=== PATIENT | male | born 1955 | race Caucasian/White ===

== ENCOUNTER 2019-08-03 17:53 | Inpatient (IN) | payer BC ==
[~2019-08-03] VITALS: Ht 182.9 cm; Wt 107.3 kg
[~2019-08-03 17:53] MED LIST: ATENPOW
[2019-08-03] MEDS ORDERED: METO1TAB87 PO (18:00)
[2019-08-03] MEDS ORDERED: NS 1,000 ML IV SCH (18:10)
[2019-08-03 18:14] LABS: HEMATOCRIT 25.3 % (42.0-52.0); HEMOGLOBIN 8.4 g/dl (13.5-17.5); MEAN CORPUSCULAR HEMOGLOBIN 30.2 pg (27.0-33.0); MEAN CORPUSCULAR HGB CONC 33.2 g/dl (32.0-36.5); PLATELET COUNT, AUTOMATED 233 10^3/uL (150-450); RED BLOOD COUNT 2.78 10^6/uL (4.30-6.10)
[2019-08-03 18:15] LABS: WHITE BLOOD COUNT 14.9 10^3/uL (4.0-10.0)
[2019-08-03] MEDS ORDERED: ASPIRIN 81 MG CHEW TABLET PO ONE (18:15)
[2019-08-03] MEDS ORDERED: NITROGLYCERIN 0.4 MG SUBL TABLET SL PRN (18:15)
[2019-08-03 18:26] LABS: INR 1.01
[2019-08-03 18:27] LABS: PARTIAL THROMBOPLASTIN TIME 22.6 SECONDS (25.0-38.4)
[2019-08-03] MEDS: METOPROLOL 5 MG/5 ML VIAL IV SCH ×3 (18:30→18:42)
[2019-08-03 18:31] LABS: ATYPICAL LYMPH 6 % (0-5); BASOPHILS 1 % (0-1); LYMPHOCYTES 39 % (16-44); MONOCYTES 4 % (0-5); NEUTROPHILS 50 % (28-66)
[2019-08-03 18:33] LABS: PLATELET ESTIMATE NORMAL (NORMAL)
[2019-08-03 18:34] LABS: D-DIMER QUANT < 270 ng/ml (<500)
[2019-08-03 18:51] LABS: BLOOD UREA NITROGEN 49 MG/DL (7-18); CARBON DIOXIDE LEVEL 26 MEQ/L (21-32); CHLORIDE LEVEL 103 MEQ/L (98-107); CPK CREATINE PHOSPHOKINASE 28 U/L (39-308); CREATININE FOR GFR 0.97 MG/DL (0.70-1.30); FREE T4 0.77 NG/DL (0.76-1.46); GLOMERULAR FILTRATION RATE > 60.0 (>49); GLUCOSE, FASTING 105 MG/DL (70-100); MB/CK RELATIVE INDEX 3.57 (< OR =4); NT-PRO BNP 41 PG/ML (<125); POTASSIUM SERUM 3.5 MEQ/L (3.5-5.1); SODIUM LEVEL 136 MEQ/L (136-145); TROPONIN I < 0.02 NG/ML (< 0.10)
[2019-08-03] MEDS ORDERED: PRED20TA PO (19:29)
[2019-08-03] MEDS ORDERED: NITROGLYCERIN 0.3 MG SUBL TAB SL PRN (19:30)
[2019-08-03] MEDS ORDERED: PANTOPRAZOLE 40MG VIAL (C9113 PER 1) IV ONE (19:30)
[2019-08-03] MEDS ORDERED: ACETAMINOPHEN TAB 650MG DOSE (2X325MG) PO PRN (19:30)
[2019-08-03] MEDS ORDERED: LORazepam 2 MG TAB PO PRN (19:30)
[2019-08-03] MEDS ORDERED: ISOVUE-370 76% 100ML VIAL As Ordered ONE (19:34)
[2019-08-03] MEDS: NS 1,000 ML IV SCH ×2 (19:55→22:24)
--- NOTE | 2019-08-03 19:57 | REPVR ---
PROCEDURE INFORMATION: Exam: CT Abdomen And Pelvis With Contrast Exam date and time: 08/03/2019 7:36 PM Age: 64 years old Clinical indication: Other: Gi bleed TECHNIQUE: Imaging protocol: Computed tomography of the abdomen and pelvis with intravenous contrast. Radiation optimization: All CT scans at this facility use at least one of these dose optimization techniques: automated exposure control; mA and/or kV adjustment per patient size (includes targeted exams where dose is matched to clinical indication); or iterative reconstruction. Contrast material: ISOVUE 370; Contrast volume: 100 ml; Contrast route: IV; COMPARISON: No relevant prior studies available. FINDINGS: Liver: Normal. No mass. Gallbladder and bile ducts: Normal. No calcified stones. No ductal dilation. Pancreas: Normal. No ductal dilation. Spleen: Normal. No splenomegaly. Adrenals: 11 mm left adrenal gland nodule, indeterminate. Kidneys and ureters: Indeterminate left renal hypodensity measuring 10 mm. Stomach and bowel: Unremarkable. No obstruction. No mucosal thickening. Appendix: No evidence of appendicitis. Intraperitoneal space: Unremarkable. No free air. No significant fluid collection. Vasculature: Mild vascular calcification. Lymph nodes: Unremarkable. No enlarged lymph nodes. Bladder: Unremarkable as visualized. Reproductive: Unremarkable as visualized. Bones/joints: There are degenerative changes involving the spine. Soft tissues: Right inguinal hernia contains fat. IMPRESSION: 1. No acute abnormality involving the abdomen or pelvis. 2. 11 mm left adrenal gland nodule, indeterminate. Adrenal protocol MRI may be considered. 3. 10 mm hypodensity involving the inferior left kidney, indeterminate. Ultrasound may be considered. Electronically signed by: Klever Krause On 08/03/2019 19:57:05 PM
[2019-08-03 20:10] VITALS: BP 117/63
[2019-08-03 20:20] LABS: CHOLESTEROL LEVEL 204 MG/DL (<200); CHOLESTEROL RISK RATIO 2.241 (<5); HDL CHOLESTEROL 91 MG/DL (>40); LDL CHOLESTEROL 78 MG/DL (<100); NON-HDL-C 113 MG/DL; TRIGLYCERIDES LEVEL 177 MG/DL (<150)
[2019-08-03 20:25] VITALS: BP 120/66
[2019-08-03 20:28] LABS: VENOUS BASE EXCESS -1.2 (-2.0-2.0); VENOUS HCO3 22.3 MEQ/L (23.0-27.0); VENOUS O2 SATURATION 99.2 % (60.0-80.0); VENOUS PARTIAL PRESSURE CO2 31.6 mmHg (38.0-50.0); VENOUS PARTIAL PRESSURE O2 181.4 mmHg (30.0-50.0); VENOUS PH 7.466 UNITS (7.330-7.430); VENOUS STANDARD HCO3 23.5 MEQ/L; VENOUS TOTAL CO2 23.2 MEQ/L (24.0-28.0)
[2019-08-03 20:52] LABS: HEMOGLOBIN A1c 5.3 %
[2019-08-03 21:17] VITALS: BP 130/80
[2019-08-03] MEDS: THIAMINE 100 MG TAB PO SCH (22:23)
[2019-08-03] MEDS: PANTOPRAZOLE 40MG VIAL (C9113 PER 1) IV SCH (22:24)
--- NOTE | 2019-08-03 22:43 | HPEPDOC ---
[facility] Medical History & Physical Date of Admission Aug 03, 2019 Date of Service: Aug 03, 2019 Primary Care Physician: Jackie Darling Attending Physician: MAHAD FERNANDEZ MD History and Physical TIME OF SERVICE: 8:55 PM CHIEF COMPLAINT: Chest pressure HISTORY OF PRESENT ILLNESS: This is a 64-year-old male who presented with complaints of 6 /10 in severity, mid-left chest pressure and tightness that resolved after he received meds in the ER. He has had chest pain in the past and had an Echo &stress test done by ; he report being told that he has anxiety and HTN. Today he also had transient palpitations, headache, felt that his legs were weak and felt dizzy and short of breath while walking; he did not fall or loose conciousnes. He came to the ER because he thought he may be having a heart attack. Of note he was diagnosed with gout about 5 days ago via a telemedicine visit and started on steroids; he stopped taking the steroids yesterday because of abdominal pain which has since resolved. He denies vomiting or having diarrhea, but had dark stools yesterday. 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 REVIEW OF SYSTEMS: 12 point review of systems negative except as listed in HPI PAST MEDICAL/ SURGICAL HISTORY: Chronic HTN L knee surgery SOCIAL HISTORY: + tobacco + alcohol 2-3 beers daily (denies hx of DTs) - recreational drugs FAMILY HISTORY: HTN- father OR/CAD - mother and father ALLERGIES: Please see below. HOME MEDICATIONS: Please see below. PHYSICAL EXAMINATION: Vital Signs Date Time Temp Pulse Resp B/P (MAP) Pulse Ox O2 Delivery O2 Flow Rate FiO2 08/03/19 17:58 99.1 117 20 136/86 (103) 98 Room Air 08/03/19 18:35 2.0 GEN: Obese/ well developed INTEGUMENT: not flushed/ not jaundice / redness, warmth and swelling surrouding right index MCP joint HEENT: normocephalic / atraumatic / lips acyanotic /mucus membranes moist and pink CVS: RRR/NMRG LUNGS: able to speak full sentences without stopping to take a breath /lungs are clear to auscultation bilaterally on room air ABDOMEN: Contour ( obese) NEURO: CN 2-12 are grossly intact / speech is not dysarthric PSYCH: alert and oriented to person place and time/ able to understand and foll ow all commands LABORATORY DATA: Prothrombin Time 13.0, Prothromb Time International Ratio 1.01, Activated Partial Thromboplast Time 22.6L, D-Dimer, Quantitative < 270, Anion Gap 7L, Glomerular Filtration Rate > 60.0, Estimated Mean Plasma Glucose 105, Hemoglobin A1c 5.3, Calcium Level 8.0L, Total Creatine Kinase 28L, Creatine Kinase MB 1.0, Creatine Kinase MB Relative Index 3.57, Troponin I < 0.02, Thyroid Stimulating Hormone (TSH) 1.530, Free Thyroxine 0.77 IMAGING: Chest xray- appears unremarkable but final report is pending CT abd/pelvis- "IMPRESSION: 1. No acute abnormality involving the abdomen or pelvis. 2. 11 mm left adrenal gland nodule, indeterminate. Adrenal protocol MRI may be considered. 3. 10 mm hypodensity involving the inferior left kidney, indeterminate. Ultrasound may be considered. " EKG: tachycardia w rate of [address] changes MICROBIOLOGY: 08/03/19 Respiratory Virus Panel (PCR) (BLAS), Received Pending 08/03/19 Blood Culture, Received Pending ASSESSMENT: Mr. Leary is a 64-year-old with a history of chronic hypertension who is admitted for evaluation of symptomatic blood loss anemia. PLAN: 1. Symptomatic Acute Blood loss Anemia I suspect his abdominal pain may be due to gastritis. The chest pain, dizziness, weakness and shortness of breath may be due the acute anemia. Possibly due to gastritis as the patient was started on steroids about 4 days ago and drinks daily. He has never had a colonoscopy On arrival, he was tachycardic, but his MAP has been consistently above 70. Hemoglobin has dropped 8.4 from his baseline of around 14.4 [place]ien[place] score to predict risk of readmission for GI bleed = 25 points = discharge not recommended The first unit of PRBCs was started in the ER Plan: admit to PCU / check orthostatics/fall precautions/CLD w IVF pending GI consult /PPI/ f/u to go aside count, iron panel, B12, PRBC, folate, stool occult, and serial serial Hg 2. SIRS Likely reactive due to acute blood los; he doesn't appear toxic or septic SIRS criteria include HR >90 / WBC >12 Has nondiabetic hyperglycemia Plan: telemetry /follow-up lactic acid, VBG, blood cultures, and respiratory panel 3. Chest Pain / Abdominal pain Possibly due to gastritis vs acute anemia vs anxiety vs other cause to be determined The EKG and troponin were not consistent with acute OR The chest x-ray appeared unremarkable CT of the abdomen was unremarkable Plan: no ASA because of acute anemia/telemetry / f/u 2 more troponins, A1c, li pid panel / Acetaminophen & Nitro PRN for chest pain / obtain echo and stress test reports from 's office 4. Right second MCP joint He has a history of gout affecting the hallux Acute Gout Diagnostic Rule = 6.5 points = equivocal = rec synovial fluid analysis for crystals Plan: f/u Uric Acid / d/c steroids / the day time team can consult Ortho for joint aspiration to confirm diagnosis 5. Alcohol abuse - Plan: Ativan, multivitamin, thiamine, folic acid, per [facility] protocol 6. Chronic HTN - Plan: resume Metoprolol tomorrow AM 7. Tobacco abuse - Plan: smoking cessation education/nicotine patch when necessary 8. Obesity with BMI of 32, complicates care. - Plan: f/u A1C/ the pt can f/u w his PCP for STOP BANG questionnaire & camera assembler consult / recommend cardiovascular exercise for 40 min 4-5 days a week DVT PROPHYLAXIS: SCDs bc of acute anemia DISPOSITION: home after more than 2 midnight's stay Home Medications Scheduled Metoprolol Tartrate (Metoprolol Tartrate) 25 Mg Tablet, 25 MG PO BID Prednisone (Prednisone) 20 Mg Tablet, 20 MG PO TID FOR 5 DAYS, START 07/31/2019 Allergies Coded Allergies: No Known Allergies (Unverified , 08/03/19) A-FIB/CHADSVASC A-FIB History Current/History of A-Fib/PAF?: No Current PO Anticoag Therapy: No MAHAD FERNANDEZ MD Aug 03, 2019 22:42
[2019-08-03 23:10] VITALS: BP 131/78
[2019-08-04] VITALS (11 sets, daily range): BP systolic 107–138; BP diastolic 54–78
[2019-08-04] MEDS: NICOTINE 21MG/24HR 1 EA TRANSDERMAL TD SCH ×2 (00:15→21:00)
[2019-08-04 00:16] LABS: HEMATOCRIT 23.8 % (42.0-52.0); HEMATOCRIT 24.2 % (42.0-52.0)
[2019-08-04 00:55] LABS: FERRITIN 203 NG/ML (26-388); IRON (FE) 263 UG/DL (65-175); PERCENT SATURATION 89.2 % (19.7-50.0); TOTAL IRON BINDING CAPACITY 295 UG/DL (250-450); TROPONIN I < 0.02 NG/ML (< 0.10); URIC ACID 8.3 MG/DL (3.5-7.2)
[2019-08-04] MEDS ORDERED: cefTRIAXone SOD 1 GM in D5W MINI-BAG PLUS 50 ML IV SCH (01:00)
[2019-08-04] MEDS ORDERED: OCTREOTIDE ACETATE 1,200 MCG in NS 238.8 ML IV SCH (01:00)
[2019-08-04] MEDS ORDERED: OCTREOTIDE ACETATE 100MCG/ML VIAL (J2354 PER 25MCG) IV ONE (01:00)
[2019-08-04 05:31] LABS: HEMATOCRIT 26.9 % (42.0-52.0); HEMOGLOBIN 9.2 g/dl (13.5-17.5); MEAN CORPUSCULAR HEMOGLOBIN 30.7 pg (27.0-33.0); MEAN CORPUSCULAR HGB CONC 34.2 g/dl (32.0-36.5); MEAN CORPUSCULAR VOLUME 89.7 fl (80.0-96.0); PLATELET COUNT, AUTOMATED 184 10^3/uL (150-450); WHITE BLOOD COUNT 9.3 10^3/uL (4.0-10.0)
[2019-08-04 05:55] LABS: BLOOD UREA NITROGEN 43 MG/DL (7-18); CALCIUM LEVEL 7.6 MG/DL (8.8-10.2); CARBON DIOXIDE LEVEL 23 MEQ/L (21-32); CHLORIDE LEVEL 109 MEQ/L (98-107); CREATININE FOR GFR 0.82 MG/DL (0.70-1.30); GLOMERULAR FILTRATION RATE > 60.0 (>49); GLUCOSE, FASTING 95 MG/DL (70-100); SODIUM LEVEL 138 MEQ/L (136-145); TROPONIN I < 0.02 NG/ML (< 0.10)
--- NOTE | 2019-08-04 07:37 | REP ---
CHEST, SINGLE VIEW: There is no evidence of acute infiltrate. No pleural effusion is seen. The heart is normal in size. The mediastinal silhouette is unremarkable. The visualized osseous structures are intact. IMPRESSION: No acute pulmonary disease. Electronically Signed by Jacoby Erickson MD 08/04/2019 10:20 A
[2019-08-04] MEDS: MULTIVITAMINS/MINERALS THERAP 1 TAB PO SCH (08:44)
[2019-08-04] MEDS: PANTOPRAZOLE 40MG VIAL (C9113 PER 1) IV SCH ×2 (08:44→21:12)
[2019-08-04] MEDS: THIAMINE 100 MG TAB PO SCH ×2 (08:44→21:12)
[2019-08-04] MEDS: FOLIC ACID 1 MG TAB PO SCH (08:44)
[2019-08-04] MEDS: METOPROLOL TART 25 MG TABLET PO SCH ×2 (08:45→21:12)
--- NOTE | 2019-08-04 08:57 | ECGEPIP ---
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 Electronically Signed on 08-04-2019 8:57:25 EDT by Juan Carlos Cruz
[2019-08-04] MEDS: NS 1,000 ML IV SCH (09:34)
--- NOTE | 2019-08-04 09:56 | IPNPDOC ---
Subjective Date Seen The patient was seen on 08/04/19. Subjective Chief Complaint/HPI Patient is comfortable in no distress. Just complaining of some epigastric pain General: Denies: ROS Unobtainable, Chills, Night Sweats, Fatigue, Malaise, Normal Appetite, Other Symptoms Constitutional: Denies: Chills, Fever, Malaise, Night Sweats, Weakness, Fatigue, Weight Loss, Lethargy, Other Pulmonary: Denies: Dyspnea, Cough, Pleuritic Chest Pain, Other Symptoms Cardiovascular: Denies: Chest Pain, Palpitations, Orthopnea, Paroxysmal Noc. Dyspnea, Edema, Lt Headedness, Other Symptoms Gastrointestinal: Reports: Abdominal Pain, Melena Hematologic: Denies: Bruising, Bleeding Excessively, Petecchia, Purpura, Enlarged Lymph Nodes, Other Hematologic Endocrine: Denies: Polydipsia, Polyphagia, Polyuria, Heat Intolerance, Cold Intolerance, Other Endocrine Sx Musculoskeletal: Denies: Neck Pain, Back Pain, Shoulder Pain, Arm Pain, Hand Pain, Leg Pain, Foot Pain, Joint Pain, Muscle Pain, Spasms, Other Symptoms Neurological: Denies: Weakness, Numbness, Incoordination, Change in speech, Confusion, Seizures, Other Symptoms Psych: Denies: Mood Normal, Anxiety, Depression, Memory Issues, Thoughts of Self Harm, Anger, Thoughts of Harming Other, Other Psych Objective Physical Examination General Exam: Positive: Alert, Cooperative Eye Exam: Positive: PERRLA, Conjunctiva & lids normal ENT Exam: Positive: Atraumatic, Mucous membr. moist/pink Neck Exam: Positive: Supple Chest Exam: Positive: Clear to auscultation, Normal air movement Heart Exam: Positive: Rate Normal, Normal S1, Normal S2 Abdomen Exam: Positive: Other (positive tenderness at the epigastric area on palpation) Extremity Exam: Positive: Normal pulses Skin Exam: Positive: Nl turgor and temperature Neuro Exam: Positive: Strength at 5/5 X4 ext, Cranial Nerves 3-12 NL Psych Exam: Positive: Mood NL, Oriented x 3 Assessment /Plan Problems (1) Upper GI hemorrhage Status: Acute Problem Text: Patient most likely has upper GI bleed, possible secondary to acute gastritis versus peptic ulcer disease. Patient has been taking prednisone as well as NSAIDs for his gout flareup lately Patient did receive 2 units of PRBC today his hemoglobin is 9.[address] Dr. Gutierrez were called by Dr. Stone for consultation but the recommend to call surgical consult was covering for GI today. Dr. Zeng was called and discussed and he will see the patient today Will continue IV Protonix but will DC Sandostatin as there is no evidence of a variceal bleed. Patient does not have symptoms of nausea, vomiting, hematemesis Continue clear liquid diet Monitor H&H Further recommendations as per GI (2) Acute blood loss anemia Status: Acute Problem Text: Acute blood loss anemia secondary to upper GI bleed. H&H stable after transfusion Monitor H&H and transfuse as needed (3) Gout Status: Chronic Problem Text: History of gout and patient recently has been taking large amounts of prednisone and NSAIDs for his gout flareup Will hold prednisone as well as NSAIDs at the present time. Could be the triggering factor for upper GI bleed (4) Alcohol use disorder Status: Chronic Problem Text: Patient is started on CIWA protocol Abstinence from alcohol was discussed in detail. Since patient also has a history of gout, which can be extubated by alcohol. We'll clinically monitor patient Plan/VTE VTE Prophylaxis Ordered?: Yes VS, I&O, 24H, Fishbone Vital Signs/I&O Vital Signs Date Time Temp Pulse Resp B/P (MAP) Pulse Ox O2 Delivery O2 Flow Rate FiO2 08/04/19 08:45 105 137/78 08/04/19 08:00 97.4 20 99 Room Air 08/03/19 19:00 2.0 I&O- Last 24 Hours up to 6 AM 08/04/19 06:00 Intake Total 800 ml Output Total 400 ml Balance 400 ml Laboratory Data 24H LABS Laboratory Tests 2 08/03/19 18:04: Neutrophils (%) (Auto) , Lymphocytes # (Auto) , Nucleated Red Blood Cells % (auto) 0.0, Neutrophils 50, Lymphocytes (Manual) 39, Monocytes (Manual) 4, Basophils (Manual) 1, Atypical Lymphocytes 6H, Platelet Estimate NORMAL, Prothrombin Time 13.0, Prothromb Time International Ratio 1.01, Activated Partial Thromboplast Time 22.6L, D-Dimer, Quantitative < 270, Anion Gap 7L, Gl omerular Filtration Rate > 60.0, Estimated Mean Plasma Glucose 105, Hemoglobin A1c 5.3, Calcium Level 8.0L, Total Creatine Kinase 28L, Creatine Kinase MB 1.0, Creatine Kinase MB Relative Index 3.57, Troponin I < 0.02, EZ-Nnd-X-Type Natriuretic Peptide 41, Triglycerides Level 177H, Total Cholesterol 204H, LDL Cholesterol 78, Non-HDL Cholesterol (LDL + VLDL) 113, Total HDL Cholesterol 91, Cholesterol/HDL Ratio 2.241, Thyroid Stimulating Hormone (TSH) 1.530, Free Thyroxine 0.77 08/03/19 20:23: Blood Gas Bicarbonate Standard 23.5, Venous Blood pH 7.466H, Venous Blood Partial Pressure CO2 31.6L, Venous Blood Partial Pressure O2 181.4H, Venous Blood Total Carbon Dioxide 23.2L, Venous Blood HCO3 22.3L, Venous Blood Oxygen Saturation 99.2H, Venous Blood Base Excess -1.2 08/03/19 23:54: Troponin I < 0.02, Reticulocyte # (auto) 52.8, Percent Reticulocyte Count 2.0H, Reticulocyte Hemoglobin Equivalent 34.8, Uric Acid 8.3H, Iron Level 263H, Total Iron Binding Capacity 295, Transferrin % Saturation 89.2H, Ferritin 203 08/04/19 04:51: Nucleated Red Blood Cells % (auto) 0.2H, Anion Gap 6L, Glomerular Filtration Rate > 60.0, Calcium Level 7.6L, Troponin I < 0.02 CBC/BMP Laboratory Tests 08/03/19 18:04 08/03/19 23:54 08/04/19 04:51 Microbiology Microbiology 08/03/19 Respiratory Virus Panel (PCR) (BLAS) - Final, Complete 08/03/19 Blood Culture, Received Pending THELMA JONES MD Aug 04, 2019 09:56
[2019-08-04 10:00] LABS: VITAMIN B12 LEVEL 97 PG/ML (247-911)
[2019-08-04] MEDS ORDERED: MORPHINE 2 MG/ML 1ML VIAL (J2270) IV PRN (13:15)
[2019-08-04] MEDS ORDERED: PROT1TAB2 PO (13:47)
--- NOTE | 2019-08-04 14:16 | DS.PDOC ---
Discharge Summary General Date of Admission Aug 03, 2019 at 19:30 Date of Discharge 08/04/19 Discharge Summary PROCEDURES PERFORMED DURING STAY: AMA ADMITTING DIAGNOSES: 1. Upper GI bleed. DISCHARGE DIAGNOSES: 1. Upper GI bleed, alcohol abuse, hypertension, anxiety . COMPLICATIONS/CHIEF COMPLAINT: Chest Pain. HISTORY OF PRESENT ILLNESS: This is a 64-year-old male who presented with complaints of 6 /10 in severity, mid-left chest pressure and tightness that resolved after he received meds in the ER. He has had chest pain in the past and had an Echo &stress test done by ; he report being told that he has anxiety and HTN. Today he also had transient palpitations, headache, felt that his legs were weak and felt dizzy and short of breath while walking; he did not fall or loose conciousnes. He came to the ER because he thought he may be having a heart attack. Of note he was diagnosed with gout about 5 days ago via a telemedicine visit and started on steroids; he stopped taking the steroids yesterday because of abdominal pain which has since resolved. He denies vomiting or having diarrhea, but had dark stools yesterday. 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 HOSPITAL COURSE: Patient was admitted with the most likely upper GI bleed with a history of epigastric pain and dark stools, most likely secondary to intake of steroids, NSAIDs and alcohol. Patient was started on octreotide Rocephin and IV PPI. Octreotide and Rocephin were DC'd, but IV PPI has been continued Patient is on clear liquid diet. Dr. Zeng for him. Surgery was called for possible EGD. Patient also received 2 units of PRBC with improvement in his hemoglobin and hematocrit. Jodee decided to sign out AMA leave, as per patient, nothing is being done, all risks of signing or AMA were explained to him and details. He understands very well, but still sign out AMA. DISCHARGE MEDICATIONS: Please see below. ALLERGIES: Please see below. PHYSICAL EXAMINATION ON DISCHARGE: For physical exam, please review the progress note of 08/04/2019 LABORATORY DATA: Please see below. IMAGING: Not applicable PROGNOSIS: Sign out AMA ACTIVITY: As tolerated. DIET: , Regular DISCHARGE PLAN: Sign out AMA DISPOSITION: . Sign out AMA DISCHARGE INSTRUCTIONS: 1. Patient was advised to avoid NSAIDs and his steroids and total abstinence from alcohol. ITEMS TO FOLLOWUP ON ON OUTPATIENT: 1. Follow PCP as soon as possible. DISCHARGE CONDITION: Stable. TIME SPENT ON DISCHARGE: 20 minutes. Vital Signs/I&Os Vital Signs Date Time Temp Pulse Resp B/P (MAP) Pulse Ox O2 Delivery O2 Flow Rate FiO2 08/04/19 08:45 105 137/78 08/04/19 08:00 97.4 20 99 Room Air 08/03/19 19:00 2.0 I&O- Last 24 Hours up to 6 AM 08/04/19 06:00 Intake Total 800 ml Output Total 400 ml Balance 400 ml Laboratory Data Labs 24H Laboratory Tests 2 08/03/19 18:04: Neutrophils (%) (Auto) , Lymphocytes # (Auto) , Nucleated Red Blood Cells % (auto) 0.0, Neutrophils 50, Lymphocytes (Manual) 39, Monocytes (Manual) 4, Basophils (Manual) 1, Atypical Lymphocytes 6H, Platelet Estimate NORMAL, Prothrombin Time 13.0, Prothromb Time International Ratio 1.01, Activated Partial Thromboplast Time 22.6L, D-Dimer, Quantitative < 270, Anion Gap 7L, Glomerular Filtration Rate > 60.0, Estimated Mean Plasma Glucose 105, Hemoglobin A1c 5.3, Calcium Level 8.0L, Total Creatine Kinase 28L, Creatine Kinase MB 1.0, Creatine Kinase MB Relative Index 3.57, Troponin I < 0.02, LQ-Ojc-U-Type Natriuretic Peptide 41, Triglycerides Level 177H, Total Cholesterol 204H, LDL Cholesterol 78, Non-HDL Cholesterol (LDL + VLDL) 113, Total HDL Cholesterol 91, Cholesterol/HDL Ratio 2.241, Thyroid Stimulating Hormone (TSH) 1.530, Free Thyroxine 0.77 08/03/19 20:23: Blood Gas Bicarbonate Standard 23.5, Venous Blood pH 7.466H, Venous Blood Partial Pressure CO2 31.6L, Venous Blood Partial Pressure O2 181.4H, Venous Blood Total Carbon Dioxide 23.2L, Venous Blood HCO3 22.3L, Venous Blood Oxygen Saturation 99.2H, Venous Blood Base Excess -1.2 08/03/19 23:54: Troponin I < 0.02, Reticulocyte # (auto) 52.8, Percent Reticulocyte Count 2.0H, Reticulocyte Hemoglobin Equivalent 34.8, Uric Acid 8.3H, Iron Level 263H, Total Iron Binding Capacity 295, Transferrin % Saturation 89.2H, Ferritin 203, Vitamin B12 Level 97L 08/04/19 04:51: Nucleated Red Blood Cells % (auto) 0.2H, Anion Gap 6L, Glomerular Filtration Rate > 60.0, Calcium Level 7.6L, Troponin I < 0.02 CBC/BMP Laboratory Tests 08/03/19 18:04 08/03/19 23:54 08/04/19 04:51 08/04/19 12:05 Microbiology Microbiology 08/04/19 Stool Occult Blood (BLAS) - Final, Complete 08/03/19 Respiratory Virus Panel (PCR) (BLAS) - Final, Complete 08/03/19 Blood Culture, Received Pending Discharge Medications Scheduled Metoprolol Tartrate (Metoprolol Tartrate) 25 Mg Tablet, 25 MG PO BID, (Reported) Pantoprazole Sodium (Protonix) 40 Mg Tablet.dr, 40 MG PO DAILY Allergies Coded Allergies: No Known Allergies (Unverified , 08/03/19) THELMA JONES MD Aug 04, 2019 14:16
--- NOTE | 2019-08-04 18:37 | ECGEPIP ---
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
--- NOTE | 2019-08-04 20:11 | CR ---
DATE OF CONSULTATION: 08/04/2019 REASON FOR CONSULTATION: Presumed upper gastrointestinal (GI) bleed. HISTORY OF PRESENT ILLNESS: The patient is a pleasant 64-year-old man who presented to the hospital on the evening of August 03, 2019 complaining of chest discomfort. He reported that he had had discomfort for about 2 hours with a suggestion of some radiation down the left arm and some shortness of breath. His vital signs showed him to be quite tachycardiac with his first pulse rate recorded at 122, rising shortly into the 140s and even to 152. His blood pressure was acceptable, though the systolic dipped below 100 briefly. He was evaluated and found to have a hematocrit of 25. His blood chemistries were significant for a BUN of 49 with a creatinine of 0.97. His cardiac injury profiles were negative. His triglycerides and cholesterol were both elevated. He was monitored with serial hematocrits, and this fell slightly to 23.8 at almost midnight on the August 02. He did receive a transfusion of packed red blood cells with a total of 2 units given from late on August 02 into the electrical manager of August 03. He was noted to have dark bowel movements, and he reported that this had started on August 02. His stool was found to be guaiac positive. He has no past history of peptic ulcer disease or known GI bleed. He has never undergone a prior upper endoscopy or colonoscopy. I was contacted by Dr. Rivera to consider upper endoscopy. The patient reports that he has been taking quite a bit of ibuprofen recently. He reports a history of gout, which in May had been in his foot, and at that time, he was taking ibuprofen. More recently, he has had pain in his right 2nd metacarpophalangeal joint. Again, he reported taking quite a bit of ibuprofen and then had gone to an online physician consult and was prescribed prednisone, which he had been taking for 3-4 days before he discontinued this yesterday. ALLERGIES: The patient reports no known drug allergies. CURRENT MEDICATIONS: Include metoprolol 25 mg by mouth twice a day. That was his only medication before admission. He currently has orders for Tylenol as needed for pain, Protonix 40 mg twice daily, thiamine 100 mg twice daily, folate 1 mg daily, a multivitamin daily, Nicoderm CQ 21 patch daily and morphine as needed. MEDICAL HISTORY: Significant for some chronic hypertension. He has seen Dr. Miner of cardiology in the past for some chest discomfort and apparently has been following infrequently with no significant cardiac disease identified. He has a history of arthritis in his left knee. History of gout. SURGICAL HISTORY: Significant only for a left knee arthroscopy. SOCIAL HISTORY: The patient is employed at the [employer]. He is a smoker and also drinks alcohol; several beers daily according to the hospitalist note. FAMILY HISTORY: Significant for hypertension in his father and his parents both had coronary artery disease. REVIEW OF SYSTEMS: Shows no identified serious coronary disease. He denies any cough, wheezing or sputum production. He has had no history of deep vein thrombosis (DVT) or pulmonary embolus. There is no history of stroke, transient ischemic attack (TIA), or seizure. He denies any new bone or joint issues. He has had no history of prior peptic ulcer disease, hepatitis, pancreatitis or yellow jaundice. He denies any dysuria or hematuria or history of renal stones. PHYSICAL EXAM: Reveals a pleasant man sitting quietly in a chair at the bedside. He is alert and oriented. Skin is warm and dry. Sclerae are anicteric. Neck is supple without mass. Heart exam: Shows a regular rhythm that appears to be at about 100. The lungs are clear to auscultation bilaterally. The abdomen is mildly to moderately obese and is soft with active bowel sounds present. Extremities: Show palpable radial pulses bilaterally. Laboratory studies today include a white count of 9, hemoglobin of 9, hematocrit of 27 and a platelet count of 184,000. This followed a transfusion of 2 units of packed red blood cells after admission. His chemistries today showed sodium 138, potassium 4.0, chloride 109, CO2 of 23, BUN of 43, creatinine 0.8 and a glucose of 95. His iron is high at 263 with a TIBC of 295 and a transferrin percent sat of 89 with a ferritin of 203. On admission, he had a chest x-ray which showed no acute cardiopulmonary disease. He had a CT scan of the abdomen and pelvis for reasons unclear, but apparently because of chest pain, and this showed no acute abnormalities. There was a small 11 mm left adrenal nodule that was indeterminate as well as a 10 mm hypodensity of the inferior left kidney, which was also felt to be indeterminate. IMPRESSION: 1. Acute GI bleed with significant anemia and some cardiac symptoms, likely from gastritis versus peptic ulcer disease. 2. Gout right 2nd metacarpophalangeal joint. 3. Hypertension. 4. Tobacco use. 5. Mild obesity. RECOMMENDATIONS: Certainly the patient is at a high risk for gastritis and/or peptic ulcer disease given some baseline alcohol intake, heavy use of ibuprofen, and a short course of steroids for 4 days. He has had black stool, and his hematocrit dropped to about 25. I do not have any labs more recent than 2016 when his hematocrit here at [facility] was 42. Certainly his shortness of breath and chest pressure symptoms would be consistent with a fairly acute blood loss. He reports that the melena did not start until this Sunday, only 1 day before admission. I discussed with him the possibility of performing an upper endoscopy. I think it would be reasonable to obtain the information from an endoscopy to potentially help guide treatment decisions. It is quite possible that the findings will not alter the plan for care, which I am sure will include a course of proton pump inhibitors. If, however, a large ulcer were identified, then we would know that his risk of rebleeding is likely higher than it would be if only some mild generalized gastritis is identified. He is eager to leave the hospital, but I counseled him that it is still not entirely clear if he has stopped bleeding as his bowel movements are still black and his hematocrit did not rise significantly with his transfusion. He indicates he is willing to stay at least overnight, and I will try to get him into the schedule for an endoscopy tomorrow. Because of the COVID-19 pandemic, the options for endoscopy are more limited, and must be done in the operating room, which means he will likely go at the end of the day tomorrow. CRISTAL
[2019-08-05] VITALS (9 sets, daily range): BP systolic 124–170; BP diastolic 60–83
[2019-08-05] MEDS: NS 1,000 ML IV SCH ×2 (06:43→17:19)
--- NOTE | 2019-08-05 08:24 | ECGEPIP ---
[facility] - ED Test Date: 2019-08-03 Pat Name: JILLIAN JOAQUIN Department: Room: [place] [address] Gender: Male External Grinder Tender: KATHRYN : 1955 Requested By: JANETT REED Order Number: [id number] Reading MD: Akash Belle Measurements Intervals [place] Rate: 111 P: 57 IN: 134 QRS: 47 QRSD: 86 T: 71 QT: 305 QTc: 416 Interpretive Statements SINUS TACHYCARDIA NONSPECIFIC ST & T-WAVE ABNORMALITY NO PRIORS FOR COMPARISON Electronically Signed on 08-05-2019 8:23:57 EDT by Akash Belle
[2019-08-05] MEDS: MULTIVITAMINS/MINERALS THERAP 1 TAB PO SCH (08:49)
[2019-08-05] MEDS: FOLIC ACID 1 MG TAB PO SCH (08:49)
[2019-08-05] MEDS: METOPROLOL TART 25 MG TABLET PO SCH ×2 (08:51→20:53)
[2019-08-05] MEDS: PANTOPRAZOLE 40MG VIAL (C9113 PER 1) IV SCH ×2 (08:54→20:52)
[2019-08-05] MEDS: THIAMINE 100 MG TAB PO SCH ×2 (09:00→20:52)
[2019-08-05 10:35] LABS: HEMATOCRIT 22.1 % (42.0-52.0); HEMOGLOBIN 7.4 g/dl (13.5-17.5); MEAN CORPUSCULAR HEMOGLOBIN 30.3 pg (27.0-33.0); MEAN CORPUSCULAR HGB CONC 33.5 g/dl (32.0-36.5); MEAN CORPUSCULAR VOLUME 90.6 fl (80.0-96.0); PLATELET COUNT, AUTOMATED 184 10^3/uL (150-450); RED BLOOD COUNT 2.44 10^6/uL (4.30-6.10); WHITE BLOOD COUNT 6.5 10^3/uL (4.0-10.0)
[2019-08-05] MEDS ORDERED: HYDROmorphone 2 MG TAB PO ONE (10:45)
[2019-08-05] MEDS ORDERED: MORPHINE 4 MG/ML 1ML VIAL/SYRINGE (J2270) IV ONE (10:45)
[2019-08-05 11:17] LABS: BLOOD UREA NITROGEN 14 MG/DL (7-18); CALCIUM LEVEL 7.7 MG/DL (8.8-10.2); CARBON DIOXIDE LEVEL 27 MEQ/L (21-32); CHLORIDE LEVEL 110 MEQ/L (98-107); CREATININE FOR GFR 0.76 MG/DL (0.70-1.30); GLOMERULAR FILTRATION RATE > 60.0 (>49); GLUCOSE, FASTING 112 MG/DL (70-100); POTASSIUM SERUM 3.3 MEQ/L (3.5-5.1); SODIUM LEVEL 140 MEQ/L (136-145)
[2019-08-05] MEDS ORDERED: LIDOCAINE 2% 100MG/5ML SDV (FOR ANES.) As Ordered ONE (18:39)
[2019-08-05] MEDS ORDERED: propofoL 200 MG/20 ML VIAL As Ordered ONE ×2 (18:39→19:31)
[2019-08-05] MEDS ORDERED: fentaNYL 100 MCG/2 ML INJECTION (J3010) As Ordered ONE (18:39)
[2019-08-05] MEDS ORDERED: PHENYLephrine HCL 500 MCG/5 ML (100MCG/ML) SYRINGE (J2370) As Ordered ONE (19:32)
--- NOTE | 2019-08-05 19:47 | IPNPDOC ---
Date Seen The patient was seen on 08/05/19. Progress Note SUBJECTIVE: Pain in right hand, swelling with uric acid >8 likely flare of gouty arthritis. To go to EGD later today. Patient would like to go home. H/H lower this AM. Denies acute bleeding, n/v/d, loose stool. OBJECTIVE: VITAL SIGNS: Please see below PHYSICAL EXAMINATION: CONSTITUTIONAL: No acute distress, AAO x 3 EYES: PERRLA, EOM intact HENT, MOUTH: Normocephalic, atraumatic, moist mucous membranes NECK: SUPPLE, no JVD, no lymphadenopathy, no carotid bruit CV: Regular rate and rhythm, S1S2 normal, no murmurs/rubs/gallops RESPIRATORY: Clear to auscultation bilaterally, no rales/rhonchi/wheezes GI: BS positive in 4 quadrants, soft, nontender, nondistended, no rebound or guarding, no organomegaly : Deferred MUSCULOSKELETAL: right hand tender to touch, swollen but no erythema, warmth of hand. Normal ROM. No cyanosis, clubbing INTEGUMENTARY: Intact, no rashes, no lesions, no erythema NEUROLOGIC: Cranial Nerves II-XII are intact, no focal deficits PSYCHIATRIC: Agitated mood CURRENT MEDICATIONS: Please see below LABORATORY DATA: Please see below IMAGING: EGD scheduled for this evening ASSESSMENT: PLAN: 1. Upper GI hemorrhage, acute. No acute bleeding since admission. H/H lower today, s/p 2 units PRBC since admission. Likely upper GI bleed, possible secondary to acute gastritis versus peptic ulcer disease.. Patient has been taking prednisone as well as NSAIDs for his gout flareup lately. EGD this evening, f/u results. Will continue IV Protonix. NPO for procedure but tolerated clear liquid diet, resume after EGD. Monitor H&H, next at 21:00. Further recommendations as per GI 2. Acute blood loss anemia secondary to upper GI bleed. H/H continued to drop, goal H/H >7. F/u CBC this evening. 3. Acute Gout flare. History of gout and patient recently has been taking large amounts of prednisone and NSAIDs for his gout flareup, alcohol abuse. Hold prednisone as well as NSAIDs at the present time. Could be the triggering factor for upper GI bleed. Morphine for pain control. 4. Alcohol use disorder, chronic. No signs of withdrawl. Since patient also has a history of gout, which can be extubated by alcohol. monitor with CIWA. 5. GI px. PPI BID. 6. DVT px. AC contraindicated. DISPOSITION: Plan is for EGD tonight, f/u recommendations. Patient will likely need to stay to f/u H/H which has been steadily declining. VS, I&O, 24H, Fishbone Vital Signs/I&O Vital Signs Date Time Temp Pulse Resp B/P (MAP) Pulse Ox O2 Delivery O2 Flow Rate FiO2 08/05/19 15:22 98.2 98 18 129/69 (89) 97 Room Air 08/03/19 19:00 2.0 I&O- Last 24 Hours up to 6 AM 08/05/19 05:59 Intake Total 2135 ml Output Total 550 ml Balance 1585 ml Laboratory Data 24H LABS Laboratory Tests 2 08/05/19 10:17: Nucleated Red Blood Cells % (auto) 0.0, Anion Gap 3L, Glomerular Filtration Rate > 60.0, Calcium Level 7.7L CBC/BMP Laboratory Tests 08/05/19 10:17 Microbiology Microbiology 08/04/19 Stool Occult Blood (BLAS) - Final, Complete 08/03/19 Respiratory Virus Panel (PCR) (BLAS) - Final, Complete 08/03/19 Blood Culture - Preliminary, Resulted No growth after 24 hours . All specim... Current Medications Current Medications Medications (Trade) Dose Ordered Sig/Filiberto Route PRN Reason Start Time Stop Time Status Last Admin Dose Admin Acetaminophen (Tylenol Tab) 650 mg Q4H PRN PO PAIN OR FEVER 08/03/19 19:30 08/04/19 09:34 Ceftriaxone Sodium 1 gm/ Dextrose 50 ml @ 100 mls/hr Q24H IV 08/04/19 01:00 08/04/19 09:59 DC 08/04/19 01:58 Folic Acid (Folic Acid) 1 mg DAILY PO 08/04/19 09:00 08/05/19 08:49 Home Med (Med Rec Complete!) ASDIRECTED XX 08/03/19 19:30 08/03/19 19:34 DC Lorazepam (Ativan) 2 mg ASDIRECTED PRN PO SEE PROTOCOL 08/03/19 19:30 Metoprolol Tartrate (Lopressor) 5 mg Q5M IV 08/03/19 18:30 08/03/19 18:41 DC 08/03/19 18:42 Metoprolol Tartrate (Lopressor) 25 mg BID PO 08/04/19 09:00 08/05/19 08:51 Morphine Sulfate (Morphine Sulfate Inj) 2 mg Q6H PRN IV MODERATE PAIN (PS 5-7) 08/04/19 13:15 08/04/19 22:49 Multivitamins (Theragram-M) 1 tab DAILY PO 08/04/19 09:00 08/05/19 08:49 Nicotine (Nicoderm Cq 21mg) 1 patch QHS TD 08/04/19 00:15 Nitroglycerin (Nitrostat (1/ 150)) 0.4 mg Q5M PRN SL CHEST PAIN 08/03/19 18:15 08/03/19 23:48 DC 08/03/19 18:18 Nitroglycerin (Nitrostat (1/ 200)) 0.3 mg Q5MP PRN SL CHEST PAIN 08/03/19 19:30 Octreotide Acetate 1200 mcg/ Sodium Chloride 240 ml @ 10 mls/hr Q24H IV 08/04/19 01:00 08/04/19 09:55 DC 08/04/19 03:19 Pantoprazole Sodium (Protonix) 40 mg BID IV 08/03/19 21:00 08/05/19 08:54 Sodium Chloride 1,000 ml @ 100 mls/hr Q10H IV 08/03/19 18:10 08/03/19 19:51 DC 08/03/19 18:17 Sodium Chloride 1,000 ml @ 100 mls/hr Q10H IV 08/03/19 19:30 08/05/19 17:19 Thiamine HCl (Thiamine HCl) 100 mg BID PO 08/03/19 21:00 08/06/19 20:59 08/05/19 09:00 Allergies Coded Allergies: No Known Allergies (Unverified , 08/03/19) Nannette Lopes MD Aug 05, 2019 19:47
[2019-08-05] MEDS ORDERED: LR 1,000 ML IV SCH (20:00)
[2019-08-05] MEDS: NICOTINE 21MG/24HR 1 EA TRANSDERMAL TD SCH (21:00)
--- NOTE | 2019-08-05 23:00 | IPN ---
DATE: 08/05/2019 HISTORY: The patient was seen in consultation last evening for a history of probable upper gastrointestinal (GI) bleeding. He had presented with some tachycardia and chest discomfort and was found to be quite anemic. He was admitted by the hospitalist and received 2 units of packed red blood cells. I was consulted for possible endoscopy. Vital signs: Show that the patient has been afebrile over the past 24 hours. His pulse is in the 90s regularly, and his blood pressure is acceptable. His room air oxygen saturation is normal. Intake and output show that yesterday he had 2500 of IV intake with 1 liter of that being oral. His urine output was 850, and he reported one bowel movement that was dark. PHYSICAL EXAMINATION: The patient is alert. He appears slightly pale. Heart exam shows that he does remain borderline tachycardiac at about 90-100. The lungs are clear. The abdomen is soft, nontender. Laboratory studies this morning show a white count of 6, hemoglobin 7.4, hematocrit 22, and a platelet count of 184,000. His hematocrit is down from 27 on the morning of the August 04, 2019. His chemistry profile shows sodium of 140, potassium 3.3, chloride 110, CO2 of 27, BUN of 14, creatinine 0.76, and a glucose of 112. IMPRESSION: The patient has clearly had a significant bleed and the melena is most suggestive of an upper GI source. He does have a history of significant recent use of ibuprofen as well as steroids, first for bronchitis and then for gout. His hematocrit is a little lower today than it had been yesterday. PLAN: I will proceed with an upper endoscopy later today to evaluate the source of bleeding. This likely represents either diffuse gastritis or ulcer disease associated with his recent medications. He was counseled for the procedure and desires to go ahead as planned. CRISTAL
--- NOTE | 2019-08-06 10:19 | ROOR ---
Patient Name: Eric Leary Procedure Date: 08/05/2019 6:37 PM Date of : 1955 Age: 64 Gender: Male Note Status: Finalized Procedure: Upper GI endoscopy Indications: Diagnostic procedure, Acute post hemorrhagic anemia, Recent gastrointestinal bleeding Providers: Alexi Zeng MD Referring MD: Juanjose Mcgregor Md Requesting Provider: Medicines: Monitored Anesthesia Care Complications: No immediate complications. Procedure: Pre-Anesthesia Assessment: - Prior to the procedure, a History and Physical was performed, and patient medications and allergies were reviewed. The patient is competent. The risks and benefits of the procedure and the sedation options and risks were discussed with the patient. All questions were answered and informed consent was obtained. Patient identification and proposed procedure were verified by the physician, the nurse and the harvesting manager in the procedure room. Mental Status Examination: alert and oriented. Airway Examination: normal oropharyngeal airway and neck mobility. Prophylactic Antibiotics: The patient does not require prophylactic antibiotics. Prior Anticoagulants: The patient has taken no previous anticoagulant or antiplatelet agents. ASA Grade Assessment: III - A patient with severe systemic disease. After reviewing the risks and benefits, the patient was deemed in satisfactory condition to undergo the procedure. The anesthesia plan was to use monitored anesthesia care (MAC). Immediately prior to administration of medications, the patient was re-assessed for adequacy to receive sedatives. The heart rate, respiratory rate, oxygen saturations, blood pressure, adequacy of pulmonary ventilation, and response to care were monitored throughout the procedure. The physical status of the patient was re-assessed after the procedure. The Endoscope was introduced through the mouth, and advanced to the second part of duodenum. The upper GI endoscopy was accomplished without difficulty. The patient tolerated the procedure well. Findings: The upper third of the esophagus, middle third of the esophagus and lower third of the esophagus were normal. One benign-appearing, intrinsic moderate stenosis was found at the gastroesophageal junction. Two non-bleeding cratered gastric ulcers with a visible vessel were found in the prepyloric region of the stomach. The largest lesion was 10 mm in largest dimension. To prevent bleeding post-intervention, two hemostatic clips were successfully placed (MR conditional). There was no bleeding at the end of the procedure. For hemostasis, two hemostatic clips were successfully placed (MR conditional). There was no bleeding at the end of the procedure. The second portion of the duodenum was normal. Patchy moderately erythematous mucosa without active bleeding and with no stigmata of bleeding was found in the first portion of the duodenum. Impression: - Normal upper third of esophagus, middle third of esophagus and lower third of esophagus. - Benign-appearing esophageal stenosis. - Non-bleeding gastric ulcers with a visible vessel. Clips (MR conditional) were placed. - Normal second portion of the duodenum. - Erythematous duodenopathy. - No specimens collected. Recommendation: - [facility]. Alexi Zeng MD Alexi Zeng MD 08/06/2019 10:19:29 AM Electronically signed by Alexi Zeng MD Number of Addenda: 0 Note Initiated On: 08/05/2019 6:37 PM Estimated Blood Loss: Estimated blood loss: none. Estimated blood loss: none.
== END 2019-08-05 21:32 | disposition left against medical advice (07) | DRG 241 ==
LOC: M ED 17:53 → M ED INP 19:30 → ENRESERVDT 20:03 → ENRESERVTM 20:03 → ENRESERVDT 20:04 → ENRESERVTM 20:04 → M PCU 21:17
PROVIDERS: ADMIT Internal Medicine; ATTEND Internal Medicine
PROC: 30233N1 Transfusion of Nonautologous Red Blood Cells into Peripheral Vein, Percutaneous Approach (ICD-10-PCS; 2019-08-03)
PROC: 0W3P8ZZ Control Bleeding in Gastrointestinal Tract, Via Natural or Artificial Opening Endoscopic (ICD-10-PCS; principal; 2019-08-05 18:00)
DX: K25.0 Acute gastric ulcer with hemorrhage (principal); D68.32 Hemorrhagic disorder due to extrinsic circulating anticoagulants; K22.2 Esophageal obstruction; I10 Essential (primary) hypertension; F17.200 Nicotine dependence, unspecified, uncomplicated; F41.9 Anxiety disorder, unspecified; K25.9 Gastric ulcer, unspecified as acute or chronic, without hemorrhage or perforation; M10.071 Idiopathic gout, right ankle and foot; T39.395A Adverse effect of other nonsteroidal anti-inflammatory drugs [NSAID], initial encounter; R07.9 Chest pain, unspecified; R73.9 Hyperglycemia, unspecified; F10.20 Alcohol dependence, uncomplicated; E66.9 Obesity, unspecified; Z68.32 Body mass index [BMI] 32.0-32.9, adult; Z79.899 Other long term (current) drug therapy; D62 Acute posthemorrhagic anemia

== ENCOUNTER → 2019-08-15 | Outpatient (CLI) | payer BC ==
[~2019-08-15] MED LIST changes: +METO1TAB87 PO; +PRED20TA PO; +PROT1TAB2 PO
[2019-08-15 15:02] LABS: HEMATOCRIT 27.6 % (42.0-52.0); HEMOGLOBIN 8.7 g/dl (13.5-17.5); MEAN CORPUSCULAR HEMOGLOBIN 29.5 pg (27.0-33.0); MEAN CORPUSCULAR HGB CONC 31.5 g/dl (32.0-36.5); MEAN CORPUSCULAR VOLUME 93.6 fl (80.0-96.0); PLATELET COUNT, AUTOMATED 578 10^3/uL (150-450); RED BLOOD COUNT 2.95 10^6/uL (4.30-6.10); WHITE BLOOD COUNT 7.3 10^3/uL (4.0-10.0)
== END ==
LOC: M LAB 13:44
PROVIDERS: ATTEND Surgery
DX: K25.3 Acute gastric ulcer without hemorrhage or perforation (principal)

== ENCOUNTER → 2019-08-22 | Outpatient (CLI) | payer BC ==
[2019-08-22 11:07] LABS: FOLATE 8.2 NG/ML
== END ==
LOC: M LAB 06:59
PROVIDERS: ATTEND Student in an Organized Health Care Education/Training Program
DX: D50.0 Iron deficiency anemia secondary to blood loss (chronic) (principal)

== ENCOUNTER → 2019-08-26 | Outpatient (CLI) | payer BC ==
[2019-08-26 08:12] LABS: BASO # 0.1 10^3/uL (0.0-0.2); BASO % 1.1 % (0.0-1.0); EOS # 0.5 10^3/uL (0.0-0.5); EOS % 8.6 % (0.0-3.0); HEMATOCRIT 34.8 % (42.0-52.0); HEMOGLOBIN 10.9 g/dl (13.5-17.5); LYMPH # 2.1 10^3/uL (1.5-5.0); LYMPH % 38.7 % (24.0-44.0); MEAN CORPUSCULAR HEMOGLOBIN 28.6 pg (27.0-33.0); MEAN CORPUSCULAR HGB CONC 31.3 g/dl (32.0-36.5); MEAN CORPUSCULAR VOLUME 91.3 fl (80.0-96.0); MONO # 0.4 10^3/uL (0.0-0.8); MONO % 7.4 % (0.0-5.0); NEUTROPHILS # 2.4 10^3/uL (1.5-8.5); PLATELET COUNT, AUTOMATED 442 10^3/uL (150-450); RED BLOOD COUNT 3.81 10^6/uL (4.30-6.10); WHITE BLOOD COUNT 5.4 10^3/uL (4.0-10.0)
[2019-08-26 09:13] LABS: FOLATE 8.2 NG/ML
[2019-08-26 09:48] LABS: HEMOGLOBIN A1c 4.4 %
== END ==
LOC: M LAB 07:37
PROVIDERS: ATTEND Student in an Organized Health Care Education/Training Program
DX: D50.0 Iron deficiency anemia secondary to blood loss (chronic) (principal); Z13.1 Encounter for screening for diabetes mellitus

== ENCOUNTER → 2019-09-01 | Outpatient (CLI) | payer BC ==
--- NOTE | 2019-09-02 07:10 | REP ---
Clinical: Left kidney mass. Technique: Real time curry scale and color evaluation using curved array transducer. Findings: Right kidney is normal in contour, size, echogenicity, and reniform shape without hydronephrosis, nephrolithiasis, cystic or renal mass lesion. Kidney measures 10.1 x 6.6 x 5.2 cm. Left kidney is normal in contour, size, echogenicity, and reniform shape without hydronephrosis, nephrolithiasis, or definite renal mass. A 1.0 x 1.0 x 0.5 cm lower pole cyst is suggested. Kidney measures 10.8 x 5.2 x 5.4 cm. Bladder is collapsed and grossly unremarkable. Impression: Findings suggest 1.0 cm lower pole left renal cyst. Consider initial 6-9 month follow-up examination. Electronically Signed by Ankush Moran MD 09/02/2019 07:02 A
== END ==
LOC: M RAD 13:26
PROVIDERS: ATTEND Student in an Organized Health Care Education/Training Program
DX: N28.89 Other specified disorders of kidney and ureter (principal)

== ENCOUNTER → 2019-09-11 | Outpatient (CLI) | payer BC ==
[2019-09-11 09:39] LABS: HEMATOCRIT 38.2 % (42.0-52.0); HEMOGLOBIN 12.3 g/dl (13.5-17.5); MEAN CORPUSCULAR HEMOGLOBIN 28.1 pg (27.0-33.0); MEAN CORPUSCULAR HGB CONC 32.2 g/dl (32.0-36.5); MEAN CORPUSCULAR VOLUME 87.4 fl (80.0-96.0); PLATELET COUNT, AUTOMATED 274 10^3/uL (150-450); RED BLOOD COUNT 4.37 10^6/uL (4.30-6.10); WHITE BLOOD COUNT 5.6 10^3/uL (4.0-10.0)
== END ==
LOC: M LAB 08:42
PROVIDERS: ATTEND Student in an Organized Health Care Education/Training Program
DX: D51.9 Vitamin B12 deficiency anemia, unspecified (principal)

== ENCOUNTER → 2019-09-11 | Outpatient (CLI) | payer BC ==
[2019-09-11 10:03] LABS: CHOLESTEROL RISK RATIO 3.197 (<5)
== END ==
LOC: M LAB 08:46
PROVIDERS: ATTEND Nurse Practitioner Family
DX: E78.5 Hyperlipidemia, unspecified (principal)

== ENCOUNTER → 2019-10-01 | Outpatient (CLI) | payer BC, SELFPAY ==
--- NOTE | 2019-10-01 09:32 | PFTRPT ---
Site: [facility], [address] [place], [address] ID: [id number] Name: JILLIAN JOAQUIN Visit Date: 10/01/2019 Second ID: [id number] Referring Doctor: Deb Jackson D.O. Reviewing Doctor: Luis Sen MD Manufacturing Engineering Technologist: Liane Mcginnis Age: 64 : 1955 Sex: Male Race: Height: 71.00 Inches Weight: 232.00 Lbs BSA: 2.25 Order IDs: [id number] Requested Test(s): <RESP-PFT.DLCO> Diagnosis: R06.2 test meet the ATS standards for acceptability and repeatability. Pt was given four puffs of albuterol for post bronchodilator. Review Status: Not Reviewed Pre-Bronch Post-Bronch Pred Actual %Pred Actual %Chng SPIROMETRY FVC (L) 4.87 4.08 83 4.23 3 FEV1 (L) 3.66 2.96 80 3.00 1 FEV1/FVC (%) 75 73 96 71 -2 FEF 25% (L/sec) 7.93 5.68 71 6.30 10 FEF 50% (L/sec) 4.77 2.92 61 3.03 3 FEF 75% (L/sec) 1.49 0.67 45 0.78 16 FEF 25-75% (L/sec) 2.95 2.02 68 2.19 8 FEF Max (L/sec) 9.27 7.48 80 7.79 4 FIVC (L) 3.72 3.92 5 FIF 50% (L/sec) 4.66 0.97 20 2.82 189 FIF Max (L/sec) 2.10 3.54 69 MVV (L/min) 141 99 70 Expiratory Time (sec) 9.11 10.61 16 Back Extrap Vol (L) 0.10 0.14 41 Time To FEFmax (sec) 0.077 0.087 12 LUNG VOLUMES SVC (L) 4.86 4.26 87 IC (L) 3.42 3.57 104 ERV (L) 1.44 0.69 47 TGV (L) 3.78 4.25 112 RV (Pleth) (L) 2.34 3.56 152 TLC (Pleth) (L) 7.20 7.82 108 RV/TLC (Pleth) (%) 33 46 137 DIFFUSION DLCOunc (ml/min/mmHg) 28.32 24.91 87 DLCOcor (ml/min/mmHg) 28.32 27.34 96 DL/VA (ml/min/mmHg/L) 3.93 3.36 85 VA (L) 7.20 8.14 113 BHT (sec) 11.83 IVC (L) 4.14 TLC (SB) (L) 8.29 AIRWAYS RESISTANCE Raw (cmH2O/L/s) 1.45 0.96 66 Gaw (L/s/cmH2O) 1.03 1.07 103 sRaw (cmH2O*s) 4.76 4.50 94 sGaw (1/cmH2O*s) 0.20 0.23 112 BLOOD GASES Hgb (gm/dL) 11.8
== END ==
LOC: M CARPUL 08:48
PROVIDERS: ATTEND Student in an Organized Health Care Education/Training Program
DX: R06.2 Wheezing (principal)

== ENCOUNTER → 2019-12-09 | Outpatient (CLI) | payer BC ==
[2020-01-11 10:42] LABS: HEMATOCRIT 41.6 % (42.0-52.0); HEMOGLOBIN 13.2 g/dl (13.5-17.5); MEAN CORPUSCULAR HEMOGLOBIN 27.4 pg (27.0-33.0); MEAN CORPUSCULAR HGB CONC 31.7 g/dl (32.0-36.5); MEAN CORPUSCULAR VOLUME 86.3 fl (80.0-96.0); PLATELET COUNT, AUTOMATED 400 10^3/uL (150-450); RED BLOOD COUNT 4.82 10^6/uL (4.30-6.10); WHITE BLOOD COUNT 5.6 10^3/uL (4.0-10.0)
[2020-01-23 14:48] LABS: FOLATE 13.2 NG/ML (>5.4); URIC ACID 8.4 MG/DL (3.5-7.2); VITAMIN B12 LEVEL > 2000 PG/ML (247-911)
== END ==
LOC: M LAB 09:17
PROVIDERS: ATTEND Student in an Organized Health Care Education/Training Program
DX: D51.9 Vitamin B12 deficiency anemia, unspecified (principal); M10.9 Gout, unspecified

== ENCOUNTER → 2019-12-31 | Outpatient (CLI) | payer BC ==
--- NOTE | 2020-01-28 07:53 | REP ---
CHEST X-RAY CLINICAL: Dyspnea. TECHNIQUE: PA and lateral. COMPARISON: 07/26/2015, 08/03/2019. FINDINGS: Mediastinum and cardiac silhouette are normal. Lung mesa are clear. No consolidation, effusion, or pneumothorax. Skeletal structures intact. IMPRESSION: Normal chest x-ray. No acute cardiopulmonary process or focal consolidation. MTDD
== END ==
LOC: M LAB 10:07 → M RAD 10:07
PROVIDERS: ATTEND Nurse Practitioner Family
DX: R06.00 Dyspnea, unspecified (principal)

== ENCOUNTER → 2020-05-11 | Outpatient (REF) | payer OTHER | LOC: M SFHCPLAZ 15:33 | PROVIDERS: ATTEND Family Medicine | DX: D51.9 Vitamin B12 deficiency anemia, unspecified (principal) ==

== ENCOUNTER → 2020-06-11 | Outpatient (CLI) | payer OTHER ==
--- NOTE | 2020-06-11 10:44 | REP ---
INDICATION: OTHER NON SPECIFIC ABNORMAL FINDING OF LUNG FIELD. COMPARISON: Comparison chest x-ray December 31, 2019.. TECHNIQUE: Helical scanning is acquired. 3 mm axial images are generated. Coronal and sagittal MPR and coronal MIP images are generated. FINDINGS: Preliminary digital biomedical repair technician radiograph shows a metallic clasp like clothing artifact projecting to the right of the sternum. Lung mesa are otherwise clear on biomedical repair technician view. Axial CT images show no evidence of lung mass, infiltrate, atelectasis, or significant pulmonary nodule. There are degenerative disc changes in the thoracic spine. There is no evidence of pleural or pericardial effusion. No hilar or mediastinal mass or adenopathy is observed. No extra thoracic mass or adenopathy is seen. Adrenal glands have a normal appearance. The visualized upper abdominal structures are unremarkable. IMPRESSION: No active disease. <Electronically signed by Mukesh Solano > 06/11/20 [id number]
== END ==
LOC: M RAD 10:15
PROVIDERS: ATTEND Nurse Practitioner Family
DX: R91.8 Other nonspecific abnormal finding of lung field (principal); Z87.891 Personal history of nicotine dependence

== ENCOUNTER 2022-04-25 09:55 | Emergency (ER) | payer OTHER ==
[~2022-04-25] VITALS: Ht 185.4 cm; Wt 140.0 kg
[2022-04-25] MEDS ORDERED: ADV250INH INH (10:28)
[2022-04-25] MEDS ORDERED: INDOMETHACIN 25 MG CAP PO ONE (12:15)
[2022-04-25 13:01] LABS: BASO % 0.4 % (0.0-1.0); EOS # 0.1 10^3/uL (0.0-0.5); HEMATOCRIT 44.7 % (42.0-52.0); HEMOGLOBIN 14.5 g/dl (13.5-17.5); LYMPH # 1.5 10^3/uL (1.5-5.0); LYMPH % 14.6 % (24.0-44.0); MEAN CORPUSCULAR HEMOGLOBIN 29.6 pg (27.0-33.0); MEAN CORPUSCULAR HGB CONC 32.4 g/dl (32.0-36.5); MEAN CORPUSCULAR VOLUME 91.2 fl (80.0-96.0); MONO # 0.8 10^3/uL (0.0-0.8); MONO % 7.9 % (2.0-8.0); NEUTROPHILS % 75.9 % (36.0-66.0); PLATELET COUNT, AUTOMATED 276 10^3/uL (150-450); WHITE BLOOD COUNT 10.5 10^3/uL (4.0-10.0)
[2022-04-25 13:10] LABS: ERYTHROCYTE SEDIMENTATION RATE 93 mm/hr (0-20)
[2022-04-25 13:27] LABS: ALBUMIN 3.3 G/DL (3.2-5.2); ALKALINE PHOSPHATASE 53 U/L (46-116); ALT/SGPT 19 U/L (7.0-40); AST/SGOT 14 U/L (<34); BILIRUBIN,DIRECT 0.5 MG/DL (<0.4); BILIRUBIN,TOTAL 1.7 MG/DL (0.3-1.2); BLOOD UREA NITROGEN 6 MG/DL (9-23); CALCIUM LEVEL 8.9 MG/DL (8.3-10.6); CARBON DIOXIDE LEVEL 25 MMOL/L (20-31); CHLORIDE LEVEL 100 MMOL/L (98-107); CREATININE FOR GFR 0.68 MG/DL (0.70-1.30); GLOMERULAR FILTRATION RATE > 60.0 (>49); GLUCOSE, FASTING 102 MG/DL (74-106); POTASSIUM SERUM 4.4 MMOL/L (3.5-5.1); RHEUMATOID FACTOR QUANT < 3.5 IU/ML (<14); SODIUM LEVEL 134 MMOL/L (136-145); TOTAL PROTEIN 7.2 G/DL (5.7-8.2)
[2022-04-25] MEDS ORDERED: PRED10TA2 PO (14:11)
[2022-04-25] MEDS ORDERED: INDO50CA91 PO (14:11)
[2022-04-25 14:33] VITALS: BP 160/88
== END 2022-04-25 14:30 | disposition home or self-care (01) ==
LOC: M ED 09:55
DX: R65.10 Systemic inflammatory response syndrome (SIRS) of non-infectious origin without acute organ dysfunction (principal); J44.9 Chronic obstructive pulmonary disease, unspecified; I10 Essential (primary) hypertension; Z79.52 Long term (current) use of systemic steroids; Z79.899 Other long term (current) drug therapy

== ENCOUNTER → 2022-05-02 | Outpatient (CLI) | payer OTHER ==
[~2022-05-02] MED LIST changes: +ADV250INH INH; +INDO50CA91 PO; +PRED10TA2 PO
== END ==
LOC: M SOG 09:38
PROVIDERS: ATTEND Orthopaedic Surgery Hand Surgery
DX: M79.642 Pain in left hand (principal)

== ENCOUNTER → 2022-05-17 | Outpatient (CLI) | payer OTHER | LOC: M PLALAB 13:06 | PROVIDERS: ATTEND Student in an Organized Health Care Education/Training Program | DX: M25.561 Pain in right knee (principal) ==

== ENCOUNTER → 2022-05-18 | Outpatient (CLI) | payer OTHER ==
[2022-05-18 11:55] LABS: ALBUMIN 2.6 G/DL (3.2-5.2); ALKALINE PHOSPHATASE 88 U/L (46-116); ALT/SGPT 62 U/L (7.0-40); AST/SGOT 17 U/L (<34); BILIRUBIN,TOTAL 0.6 MG/DL (0.3-1.2); BLOOD UREA NITROGEN 13 MG/DL (9-23); CALCIUM LEVEL 9.3 MG/DL (8.3-10.6); CARBON DIOXIDE LEVEL 28 MMOL/L (20-31); CHLORIDE LEVEL 102 MMOL/L (98-107); CHOLESTEROL LEVEL 192 MG/DL (<200); CHOLESTEROL RISK RATIO 3.85 (<5); CREATININE FOR GFR 0.67 MG/DL (0.70-1.30); GLOMERULAR FILTRATION RATE > 60.0 (>49); GLUCOSE, FASTING 122 MG/DL (74-106); HDL CHOLESTEROL 49.8 MG/DL (>40); LDL CHOLESTEROL 125.6 MG/DL (<100); NON-HDL-C 142 MG/DL; POTASSIUM SERUM 4.8 MMOL/L (3.5-5.1); SODIUM LEVEL 138 MMOL/L (136-145); TOTAL PROTEIN 6.3 G/DL (5.7-8.2); TRIGLYCERIDES LEVEL 83 MG/DL (<150)
[2022-05-18 12:07] LABS: HEMOGLOBIN A1c 5.5 % (4.0-6.0)
[2022-05-18 12:10] LABS: HEPATITIS B SURFACE ANTIGEN NEGATIVE (NEGATIVE)
[2022-05-18 12:30] LABS: HEPATITIS C VIRUS ABY INDEX 0.1 INDEX (<0.8)
== END ==
LOC: M PLALAB 08:13
PROVIDERS: ATTEND Student in an Organized Health Care Education/Training Program
DX: M25.561 Pain in right knee (principal)

== ENCOUNTER → 2022-05-24 | Outpatient (CLI) | payer OTHER ==
[2022-05-24 11:36] LABS: RHEUMATOID FACTOR QUANT < 3.5 IU/ML (<14)
== END ==
LOC: M PLALAB 09:03
PROVIDERS: ATTEND Student in an Organized Health Care Education/Training Program
DX: M25.561 Pain in right knee (principal)

== ENCOUNTER 2022-06-12 16:51 | Emergency (ER) | payer OTHER ==
[~2022-06-12] VITALS: Ht 154.9 cm; Wt 108.2 kg
[2022-06-12 16:54] VITALS: BP 129/72
[2022-06-12] MEDS ORDERED: DOXY100C3 (17:12)
[2022-06-12] MEDS ORDERED: GABA-282 (17:12)
[2022-06-12 18:06] LABS: BASO % 0.3 % (0.0-1.0); EOS % 0.4 % (0.0-3.0); HEMATOCRIT 41.5 % (42.0-52.0); HEMOGLOBIN 13.3 g/dl (13.5-17.5); LYMPH # 1.8 10^3/uL (1.5-5.0); LYMPH % 18.1 % (24.0-44.0); MEAN CORPUSCULAR HEMOGLOBIN 28.1 pg (27.0-33.0); MEAN CORPUSCULAR VOLUME 87.7 fl (80.0-96.0); MONO % 10.2 % (2.0-8.0); NEUTROPHILS # 7.2 10^3/uL (1.5-8.5); NEUTROPHILS % 70.7 % (36.0-66.0); PLATELET COUNT, AUTOMATED 252 10^3/uL (150-450); RED BLOOD COUNT 4.73 10^6/uL (4.30-6.10); WHITE BLOOD COUNT 10.2 10^3/uL (4.0-10.0)
[2022-06-12 18:13] LABS: CK-MB VALUE MASS < 1.0 NG/ML (<3.6)
[2022-06-12 18:14] LABS: BLOOD UREA NITROGEN 7 MG/DL (9-23); CALCIUM LEVEL 9.1 MG/DL (8.3-10.6); CARBON DIOXIDE LEVEL 24 MMOL/L (20-31); CHLORIDE LEVEL 102 MMOL/L (98-107); CPK CREATINE PHOSPHOKINASE 19 U/L (46-171); CREATININE FOR GFR 0.66 MG/DL (0.70-1.30); GLOMERULAR FILTRATION RATE > 60.0 (>49); GLUCOSE, FASTING 90 MG/DL (74-106); MB/CK RELATIVE INDEX 5.26 (< OR =4); SODIUM LEVEL 135 MMOL/L (136-145)
== END 2022-06-12 19:29 | disposition left against medical advice (07) ==
LOC: M ED 16:51
DX: Z53.21 Procedure and treatment not carried out due to patient leaving prior to being seen by health care provider (principal)

== ENCOUNTER 2022-06-14 11:03 | Emergency (ER) | payer MEDICARE, OTHER ==
[~2022-06-14] VITALS: Ht 185.4 cm; Wt 108.2 kg
[~2022-06-14 11:03] MED LIST changes: +DOXY100C3; +GABA-282
[2022-06-14] MEDS ORDERED: MORPHINE 4 MG/ML 1ML VIAL IV ONE (13:00)
[2022-06-14] MEDS ORDERED: NS 1,000 ML IV ONE (13:00)
[2022-06-14] MEDS ORDERED: methylPREDNISolone 125MG 2ML VIAL IV ONE (13:00)
[2022-06-14 14:19] LABS: URIC ACID 6.1 MG/DL (3.7-9.2)
[2022-06-14 14:20] LABS: BASO % 0.2 % (0.0-1.0); EOS % 0.3 % (0.0-3.0); HEMATOCRIT 39.4 % (42.0-52.0); HEMOGLOBIN 12.8 g/dl (13.5-17.5); LYMPH # 1.4 10^3/uL (1.5-5.0); LYMPH % 10.9 % (24.0-44.0); MEAN CORPUSCULAR HEMOGLOBIN 28.2 pg (27.0-33.0); MEAN CORPUSCULAR HGB CONC 32.5 g/dl (32.0-36.5); MEAN CORPUSCULAR VOLUME 86.8 fl (80.0-96.0); MONO # 1.3 10^3/uL (0.0-0.8); MONO % 10.6 % (2.0-8.0); NEUTROPHILS # 9.8 10^3/uL (1.5-8.5); NEUTROPHILS % 77.3 % (36.0-66.0); PLATELET COUNT, AUTOMATED 266 10^3/uL (150-450); RED BLOOD COUNT 4.54 10^6/uL (4.30-6.10); WHITE BLOOD COUNT 12.6 10^3/uL (4.0-10.0)
[2022-06-14 14:32] LABS: ERYTHROCYTE SEDIMENTATION RATE > 130 mm/hr (0-20)
[2022-06-14 14:49] LABS: ALBUMIN 2.7 G/DL (3.2-5.2); ALKALINE PHOSPHATASE 53 U/L (46-116); ALT/SGPT 10 U/L (7.0-40); AST/SGOT 9 U/L (<34); BILIRUBIN,TOTAL 3.4 MG/DL (0.3-1.2); BLOOD UREA NITROGEN 9 MG/DL (9-23); CALCIUM LEVEL 8.7 MG/DL (8.3-10.6); CARBON DIOXIDE LEVEL 25 MMOL/L (20-31); CHLORIDE LEVEL 100 MMOL/L (98-107); CREATININE FOR GFR 0.73 MG/DL (0.70-1.30); GLOMERULAR FILTRATION RATE > 60.0 (>49); GLUCOSE, FASTING 102 MG/DL (74-106); POTASSIUM SERUM 4.1 MMOL/L (3.5-5.1); SODIUM LEVEL 133 MMOL/L (136-145)
[2022-06-14 15:56] VITALS: BP 106/58
[2022-06-14] MEDS ORDERED: HYDR-3713 PO (15:58)
[2022-06-14] MEDS ORDERED: PRED10TA2 PO ×2 (15:58→16:46)
[2022-06-14 21:02] LABS: TOTAL PROTEIN 6.5 G/DL (5.7-8.2)
== END 2022-06-14 17:12 | disposition home or self-care (01) ==
LOC: M ED 11:03 → EDBD 11:03 → M ED 17:12
DX: M06.4 Inflammatory polyarthropathy (principal); I10 Essential (primary) hypertension; Z79.899 Other long term (current) drug therapy
CPT/HCPCS: 80048; 80076; 83605; 84550; 85025; 85652; 86140; 87040; 96361; 96374; 96375; 99284; J2270; J2930

== ENCOUNTER → 2022-07-11 | Outpatient (REF) | payer OTHER ==
[~2022-07-11] MED LIST changes: +HYDR-3713 PO
[2022-07-11 18:35] LABS: SOURCE, BODY FLUID CRYSTALS LFT KNEE
[2022-07-11 18:42] LABS: CRYSTALS, BODY FLUID URIC ACID (NONE SEEN)
== END ==
LOC: M SFHCRHEU 13:52
PROVIDERS: ATTEND Internal Medicine Rheumatology
DX: M19.90 Unspecified osteoarthritis, unspecified site (principal); M1A.09X0 Idiopathic chronic gout, multiple sites, without tophus (tophi)

== ENCOUNTER → 2022-07-18 | Outpatient (REF) | payer OTHER ==
[2022-07-18 13:27] LABS: BASO % 0.6 % (0.0-1.0); EOS # 0.1 10^3/uL (0.0-0.5); HEMOGLOBIN 13.7 g/dl (13.5-17.5); LYMPH # 1.5 10^3/uL (1.5-5.0); LYMPH % 21.3 % (24.0-44.0); MEAN CORPUSCULAR HEMOGLOBIN 27.8 pg (27.0-33.0); MEAN CORPUSCULAR HGB CONC 31.1 g/dl (32.0-36.5); MEAN CORPUSCULAR VOLUME 89.2 fl (80.0-96.0); MONO # 0.4 10^3/uL (0.0-0.8); MONO % 5.9 % (2.0-8.0); NEUTROPHILS # 5.1 10^3/uL (1.5-8.5); NEUTROPHILS % 70.9 % (36.0-66.0); PLATELET COUNT, AUTOMATED 319 10^3/uL (150-450); RED BLOOD COUNT 4.93 10^6/uL (4.30-6.10); WHITE BLOOD COUNT 7.1 10^3/uL (4.0-10.0)
[2022-07-18 13:36] LABS: URIC ACID 6.4 MG/DL (3.7-9.2)
[2022-07-18 13:37] LABS: TOTAL IRON BINDING CAPACITY 307 UG/DL (250-425)
[2022-07-18 13:38] LABS: FERRITIN 122.3 NG/ML (10.5-307.3)
[2022-07-18 13:39] LABS: IRON (FE) 117 UG/DL (65-175); PERCENT SATURATION 38.1 % (19.7-50.0)
[2022-07-18 13:40] LABS: C REACTIVE PROTEIN QUANTITATIV < 0.40 MG/DL (<1.0)
[2022-07-18 13:41] LABS: ALBUMIN 3.5 G/DL (3.2-5.2); ALKALINE PHOSPHATASE 45 U/L (46-116); ALT/SGPT 10 U/L (7.0-40); AST/SGOT 14 U/L (<34); BILIRUBIN,TOTAL 0.9 MG/DL (0.3-1.2); BLOOD UREA NITROGEN 8 MG/DL (9-23); CALCIUM LEVEL 9.8 MG/DL (8.3-10.6); CARBON DIOXIDE LEVEL 31 MMOL/L (20-31); CHLORIDE LEVEL 103 MMOL/L (98-107); CREATININE FOR GFR 0.71 MG/DL (0.70-1.30); ERYTHROCYTE SEDIMENTATION RATE 66 mm/hr (0-20); GLOMERULAR FILTRATION RATE > 60.0 (>49); GLUCOSE, FASTING 84 MG/DL (74-106); PHOSPHORUS LEVEL 4.1 MG/DL (2.4-5.1); POTASSIUM SERUM 4.7 MMOL/L (3.5-5.1); PTH INTACT 48.1 PG/ML (18.5-88.0); SODIUM LEVEL 139 MMOL/L (136-145); TOTAL PROTEIN 6.7 G/DL (5.7-8.2)
== END ==
LOC: M SFHCRHEU 08:44
PROVIDERS: ATTEND Internal Medicine Rheumatology
DX: M19.90 Unspecified osteoarthritis, unspecified site (principal); M1A.09X0 Idiopathic chronic gout, multiple sites, without tophus (tophi)

== ENCOUNTER → 2022-10-02 | Outpatient (CLI) | payer MEDICARE, OTHER ==
[2022-10-02 14:33] LABS: BASO # 0.1 10^3/uL (0.0-0.2); EOS # 0.2 10^3/uL (0.0-0.5); EOS % 3.6 % (0.0-3.0); HEMATOCRIT 47.1 % (42.0-52.0); HEMOGLOBIN 15.2 g/dl (13.5-17.5); LYMPH # 2.6 10^3/uL (1.5-5.0); LYMPH % 42.6 % (24.0-44.0); MEAN CORPUSCULAR HEMOGLOBIN 28.5 pg (27.0-33.0); MEAN CORPUSCULAR HGB CONC 32.3 g/dl (32.0-36.5); MEAN CORPUSCULAR VOLUME 88.2 fl (80.0-96.0); MONO # 0.6 10^3/uL (0.0-0.8); NEUTROPHILS # 2.6 10^3/uL (1.5-8.5); NEUTROPHILS % 42.8 % (36.0-66.0); PLATELET COUNT, AUTOMATED 225 10^3/uL (150-450); RED BLOOD COUNT 5.34 10^6/uL (4.30-6.10); WHITE BLOOD COUNT 6.1 10^3/uL (4.0-10.0)
[2022-10-02 14:37] LABS: ALKALINE PHOSPHATASE 53 U/L (46-116); ALT/SGPT 24 U/L (7.0-40); AST/SGOT 34 U/L (<34); BILIRUBIN,TOTAL 0.8 MG/DL (0.3-1.2); BLOOD UREA NITROGEN 9 MG/DL (9-23); CALCIUM LEVEL 9.1 MG/DL (8.3-10.6); CARBON DIOXIDE LEVEL 29 MMOL/L (20-31); CHLORIDE LEVEL 104 MMOL/L (98-107); CREATININE FOR GFR 0.87 MG/DL (0.70-1.30); GLOMERULAR FILTRATION RATE > 60.0 (>49); GLUCOSE, FASTING 102 MG/DL (74-106); POTASSIUM SERUM 4.6 MMOL/L (3.5-5.1); SODIUM LEVEL 141 MMOL/L (136-145); TOTAL PROTEIN 7.2 G/DL (5.7-8.2)
[2022-10-02 14:44] LABS: C REACTIVE PROTEIN QUANTITATIV < 0.40 MG/DL (<1.0)
[2022-10-02 14:52] LABS: URIC ACID 6.8 MG/DL (3.7-9.2)
[2022-10-02 20:00] LABS: ERYTHROCYTE SEDIMENTATION RATE 39 mm/hr (0-20)
== END ==
LOC: M PLALAB 09:32
PROVIDERS: ATTEND Internal Medicine Rheumatology
DX: M19.90 Unspecified osteoarthritis, unspecified site (principal)

== ENCOUNTER → 2022-10-09 | Outpatient (REF) | payer OTHER | LOC: M SFHCRHEU 11:55 | PROVIDERS: ATTEND Internal Medicine Rheumatology | DX: M19.90 Unspecified osteoarthritis, unspecified site (principal); M1A.09X0 Idiopathic chronic gout, multiple sites, without tophus (tophi); Z53.9 Procedure and treatment not carried out, unspecified reason ==

== ENCOUNTER → 2022-11-06 | Outpatient (CLI) | payer OTHER, MEDICARE ==
[2022-11-06 12:06] LABS: C REACTIVE PROTEIN QUANTITATIV < 0.40 MG/DL (<1.0)
[2022-11-06 12:07] LABS: ALBUMIN 3.6 G/DL (3.2-5.2); ALKALINE PHOSPHATASE 46 U/L (46-116); ALT/SGPT 29 U/L (7.0-40); AST/SGOT 31 U/L (<34); BLOOD UREA NITROGEN 10 MG/DL (9-23); CALCIUM LEVEL 8.7 MG/DL (8.3-10.6); CARBON DIOXIDE LEVEL 29 MMOL/L (20-31); CHLORIDE LEVEL 102 MMOL/L (98-107); CREATININE FOR GFR 0.83 MG/DL (0.70-1.30); GLOMERULAR FILTRATION RATE > 60.0 (>49); GLUCOSE, FASTING 98 MG/DL (74-106); POTASSIUM SERUM 4.4 MMOL/L (3.5-5.1); SODIUM LEVEL 137 MMOL/L (136-145)
[2022-11-06 12:11] LABS: BASO % 0.6 % (0.0-1.0); EOS # 0.3 10^3/uL (0.0-0.5); EOS % 4.2 % (0.0-3.0); HEMATOCRIT 41.6 % (42.0-52.0); HEMOGLOBIN 13.7 g/dl (13.5-17.5); LYMPH % 46.6 % (24.0-44.0); MEAN CORPUSCULAR HEMOGLOBIN 29.7 pg (27.0-33.0); MEAN CORPUSCULAR HGB CONC 32.9 g/dl (32.0-36.5); MONO # 0.6 10^3/uL (0.0-0.8); MONO % 9.5 % (2.0-8.0); NEUTROPHILS # 2.5 10^3/uL (1.5-8.5); NEUTROPHILS % 38.9 % (36.0-66.0); PLATELET COUNT, AUTOMATED 218 10^3/uL (150-450); RED BLOOD COUNT 4.62 10^6/uL (4.30-6.10); WHITE BLOOD COUNT 6.4 10^3/uL (4.0-10.0)
[2022-11-06 12:43] LABS: ERYTHROCYTE SEDIMENTATION RATE 29 mm/hr (0-20)
== END ==
LOC: M PLALAB 07:39
PROVIDERS: ATTEND Internal Medicine Rheumatology
DX: M19.90 Unspecified osteoarthritis, unspecified site (principal); M1A.09X0 Idiopathic chronic gout, multiple sites, without tophus (tophi)

== ENCOUNTER → 2022-11-30 | Outpatient (CLI) | payer MEDICARE, OTHER ==
[2022-11-30 10:24] LABS: BASO # 0.1 10^3/uL (0.0-0.2); BASO % 0.9 % (0.0-1.0); EOS # 0.2 10^3/uL (0.0-0.5); EOS % 3.9 % (0.0-3.0); HEMATOCRIT 42.6 % (42.0-52.0); HEMOGLOBIN 13.8 g/dl (13.5-17.5); LYMPH # 2.2 10^3/uL (1.5-5.0); MEAN CORPUSCULAR HEMOGLOBIN 29.7 pg (27.0-33.0); MEAN CORPUSCULAR HGB CONC 32.4 g/dl (32.0-36.5); MEAN CORPUSCULAR VOLUME 91.6 fl (80.0-96.0); MONO # 0.5 10^3/uL (0.0-0.8); MONO % 9.3 % (2.0-8.0); NEUTROPHILS # 2.7 10^3/uL (1.5-8.5); NEUTROPHILS % 47.7 % (36.0-66.0); PLATELET COUNT, AUTOMATED 238 10^3/uL (150-450); RED BLOOD COUNT 4.65 10^6/uL (4.30-6.10); WHITE BLOOD COUNT 5.7 10^3/uL (4.0-10.0)
[2022-11-30 10:45] LABS: ERYTHROCYTE SEDIMENTATION RATE 30 mm/hr (0-20)
[2022-11-30 10:50] LABS: URIC ACID 5.1 MG/DL (3.7-9.2)
[2022-11-30 10:52] LABS: C REACTIVE PROTEIN QUANTITATIV < 0.40 MG/DL (<1.0)
[2022-11-30 10:54] LABS: ALBUMIN 3.7 G/DL (3.2-5.2); ALKALINE PHOSPHATASE 50 U/L (46-116); ALT/SGPT 42 U/L (7.0-40); AST/SGOT 40 U/L (<34); BILIRUBIN,TOTAL 1.4 MG/DL (0.3-1.2); BLOOD UREA NITROGEN 9 MG/DL (9-23); CARBON DIOXIDE LEVEL 28 MMOL/L (20-31); CHLORIDE LEVEL 102 MMOL/L (98-107); CREATININE FOR GFR 0.81 MG/DL (0.70-1.30); GLOMERULAR FILTRATION RATE > 60.0 (>49); GLUCOSE, FASTING 105 MG/DL (74-106); SODIUM LEVEL 138 MMOL/L (136-145)
== END ==
LOC: M PLALAB 08:22
PROVIDERS: ATTEND Internal Medicine Rheumatology
DX: M19.90 Unspecified osteoarthritis, unspecified site (principal); M1A.09X0 Idiopathic chronic gout, multiple sites, without tophus (tophi)

== ENCOUNTER → 2023-02-19 | Outpatient (CLI) | payer OTHER ==
[2023-02-19 11:26] LABS: BASO # 0.1 10^3/uL (0.0-0.2); BASO % 1.2 % (0.0-1.0); EOS # 0.2 10^3/uL (0.0-0.5); EOS % 3.1 % (0.0-3.0); HEMOGLOBIN 15.5 g/dl (13.5-17.5); LYMPH # 2.7 10^3/uL (1.5-5.0); LYMPH % 39.9 % (24.0-44.0); MEAN CORPUSCULAR HEMOGLOBIN 30.4 pg (27.0-33.0); MEAN CORPUSCULAR VOLUME 92.2 fl (80.0-96.0); MONO # 0.8 10^3/uL (0.0-0.8); MONO % 11.2 % (2.0-8.0); NEUTROPHILS # 2.9 10^3/uL (1.5-8.5); NEUTROPHILS % 44.2 % (36.0-66.0); PLATELET COUNT, AUTOMATED 310 10^3/uL (150-450); WHITE BLOOD COUNT 6.7 10^3/uL (4.0-10.0)
[2023-02-19 11:41] LABS: ERYTHROCYTE SEDIMENTATION RATE 56 mm/hr (0-20)
[2023-02-20 04:56] LABS: ALBUMIN 3.3 G/DL (3.2-5.2); ALKALINE PHOSPHATASE 60 U/L (46-116); ALT/SGPT 31 U/L (7.0-40); AST/SGOT 26 U/L (<34); BILIRUBIN,TOTAL 0.6 MG/DL (0.3-1.2); BLOOD UREA NITROGEN 8 MG/DL (9-23); CALCIUM LEVEL 9.2 MG/DL (8.3-10.6); CARBON DIOXIDE LEVEL 30 MMOL/L (20-31); CHLORIDE LEVEL 101 MMOL/L (98-107); CREATININE FOR GFR 0.87 MG/DL (0.70-1.30); GLOMERULAR FILTRATION RATE > 60.0 (>49); GLUCOSE, FASTING 94 MG/DL (74-106); POTASSIUM SERUM 4.8 MMOL/L (3.5-5.1); SODIUM LEVEL 140 MMOL/L (136-145); TOTAL PROTEIN 6.9 G/DL (5.7-8.2)
[2023-02-22 11:17] LABS: URIC ACID 5.1 MG/DL (3.7-9.2)
== END ==
LOC: M PLALAB 08:29
PROVIDERS: ATTEND Internal Medicine Rheumatology
DX: M19.90 Unspecified osteoarthritis, unspecified site (principal)

== ENCOUNTER → 2023-03-14 | Outpatient (REF) | payer OTHER, MEDICAID | LOC: M SFHCRHEU 09:37 | PROVIDERS: ATTEND Internal Medicine Rheumatology | DX: M19.90 Unspecified osteoarthritis, unspecified site (principal); M1A.09X0 Idiopathic chronic gout, multiple sites, without tophus (tophi); M15.9 Polyosteoarthritis, unspecified; R79.89 Other specified abnormal findings of blood chemistry ==

== ENCOUNTER → 2023-06-04 | Outpatient (CLI) | payer OTHER ==
[2023-06-04 15:16] LABS: BASO # 0.1 10^3/uL (0.0-0.2); BASO % 0.9 % (0.0-1.0); EOS # 0.2 10^3/uL (0.0-0.5); EOS % 3.2 % (0.0-3.0); HEMATOCRIT 46.9 % (42.0-52.0); HEMOGLOBIN 15.4 g/dl (13.5-17.5); LYMPH # 2.9 10^3/uL (1.5-5.0); LYMPH % 44.1 % (24.0-44.0); MEAN CORPUSCULAR HGB CONC 32.8 g/dl (32.0-36.5); MEAN CORPUSCULAR VOLUME 91.4 fl (80.0-96.0); MONO # 0.7 10^3/uL (0.0-0.8); MONO % 10.7 % (2.0-8.0); NEUTROPHILS # 2.7 10^3/uL (1.5-8.5); NEUTROPHILS % 40.8 % (36.0-66.0); PLATELET COUNT, AUTOMATED 228 10^3/uL (150-450); RED BLOOD COUNT 5.13 10^6/uL (4.30-6.10); WHITE BLOOD COUNT 6.6 10^3/uL (4.0-10.0)
[2023-06-04 15:38] LABS: URIC ACID 5.2 MG/DL (3.7-9.2)
[2023-06-04 15:40] LABS: C REACTIVE PROTEIN QUANTITATIV < 0.40 MG/DL (<1.0)
[2023-06-04 15:41] LABS: ALBUMIN 3.6 G/DL (3.2-5.2); ALKALINE PHOSPHATASE 53 U/L (46-116); ALT/SGPT 40 U/L (7.0-40); AST/SGOT 35 U/L (<34); BILIRUBIN,TOTAL 1.1 MG/DL (0.3-1.2); BLOOD UREA NITROGEN 10 MG/DL (9-23); CARBON DIOXIDE LEVEL 29 MMOL/L (20-31); CHLORIDE LEVEL 102 MMOL/L (98-107); CREATININE FOR GFR 0.86 MG/DL (0.70-1.30); GLOMERULAR FILTRATION RATE > 60.0 (>49); GLUCOSE, FASTING 97 MG/DL (74-106); POTASSIUM SERUM 4.3 MMOL/L (3.5-5.1); SODIUM LEVEL 137 MMOL/L (136-145); TOTAL PROTEIN 7.6 G/DL (5.7-8.2)
[2023-06-04 15:42] LABS: ERYTHROCYTE SEDIMENTATION RATE 38 mm/hr (0-20)
== END ==
LOC: M PLALAB 09:40
PROVIDERS: ATTEND Internal Medicine Rheumatology
DX: M19.90 Unspecified osteoarthritis, unspecified site (principal); M1A.09X0 Idiopathic chronic gout, multiple sites, without tophus (tophi)

== ENCOUNTER → 2023-09-05 | Outpatient (CLI) | payer MEDICAID, OTHER ==
[2023-09-05 12:06] LABS: ALBUMIN 3.3 G/DL (3.2-5.2); ALKALINE PHOSPHATASE 59 U/L (46-116); ALT/SGPT 40 U/L (7.0-40); AST/SGOT 38 U/L (<34); BILIRUBIN,TOTAL 0.7 MG/DL (0.3-1.2); BLOOD UREA NITROGEN 7 MG/DL (9-23); CALCIUM LEVEL 9.3 MG/DL (8.3-10.6); CARBON DIOXIDE LEVEL 29 MMOL/L (20-31); CHLORIDE LEVEL 102 MMOL/L (98-107); CREATININE FOR GFR 0.79 MG/DL (0.70-1.30); GLOMERULAR FILTRATION RATE > 60.0 (>49); GLUCOSE, FASTING 94 MG/DL (74-106); POTASSIUM SERUM 4.7 MMOL/L (3.5-5.1); SODIUM LEVEL 137 MMOL/L (136-145)
[2023-09-05 12:07] LABS: BASO # 0.1 10^3/uL (0.0-0.2); EOS # 0.3 10^3/uL (0.0-0.5); EOS % 4.4 % (0.0-3.0); HEMATOCRIT 42.2 % (42.0-52.0); LYMPH # 2.6 10^3/uL (1.5-5.0); LYMPH % 37.9 % (24.0-44.0); MEAN CORPUSCULAR HEMOGLOBIN 30.9 pg (27.0-33.0); MEAN CORPUSCULAR HGB CONC 33.2 g/dl (32.0-36.5); MEAN CORPUSCULAR VOLUME 93.2 fl (80.0-96.0); MONO # 0.6 10^3/uL (0.0-0.8); MONO % 8.7 % (2.0-8.0); NEUTROPHILS # 3.3 10^3/uL (1.5-8.5); NEUTROPHILS % 47.7 % (36.0-66.0); PLATELET COUNT, AUTOMATED 295 10^3/uL (150-450); RED BLOOD COUNT 4.53 10^6/uL (4.30-6.10); WHITE BLOOD COUNT 6.9 10^3/uL (4.0-10.0)
[2023-09-05 12:11] LABS: URIC ACID 4.8 MG/DL (3.7-9.2)
[2023-09-05 12:30] LABS: ERYTHROCYTE SEDIMENTATION RATE 43 mm/hr (0-20)
== END ==
LOC: M PLALAB 08:09
PROVIDERS: ATTEND Internal Medicine Rheumatology
DX: M15.9 Polyosteoarthritis, unspecified (principal); M1A.09X0 Idiopathic chronic gout, multiple sites, without tophus (tophi); R79.89 Other specified abnormal findings of blood chemistry

== ENCOUNTER → 2024-03-31 | Outpatient (CLI) | payer MEDICAID, OTHER ==
[~2024-03-31] MED LIST changes: +GABA-1172; -GABA-282
[2024-03-31 10:41] LABS: BASO # 0.1 10^3/uL (0.0-0.2); BASO % 0.9 % (0.0-1.0); EOS # 0.2 10^3/uL (0.0-0.5); EOS % 3.3 % (0.0-3.0); HEMATOCRIT 42.3 % (42.0-52.0); HEMOGLOBIN 14.3 g/dl (13.5-17.5); LYMPH # 2.5 10^3/uL (1.5-5.0); LYMPH % 38.5 % (24.0-44.0); MEAN CORPUSCULAR HEMOGLOBIN 31.2 pg (27.0-33.0); MEAN CORPUSCULAR HGB CONC 33.8 g/dl (32.0-36.5); MEAN CORPUSCULAR VOLUME 92.2 fl (80.0-96.0); MONO # 0.6 10^3/uL (0.0-0.8); MONO % 8.9 % (2.0-8.0); NEUTROPHILS # 3.1 10^3/uL (1.5-8.5); NEUTROPHILS % 48.1 % (36.0-66.0); PLATELET COUNT, AUTOMATED 210 10^3/uL (150-450); RED BLOOD COUNT 4.59 10^6/uL (4.30-6.10); WHITE BLOOD COUNT 6.4 10^3/uL (4.0-10.0)
[2024-03-31 10:47] LABS: ERYTHROCYTE SEDIMENTATION RATE 28 mm/hr (0-20)
[2024-03-31 11:07] LABS: URIC ACID 5.2 MG/DL (3.7-9.2)
[2024-03-31 11:08] LABS: C REACTIVE PROTEIN QUANTITATIV < 0.40 MG/DL (<1.0)
[2024-03-31 11:11] LABS: ALBUMIN 3.5 G/DL (3.2-5.2); ALKALINE PHOSPHATASE 45 U/L (40-129); ALT/SGPT 44 U/L (7.0-40); AST/SGOT 34 U/L (<34); BILIRUBIN,TOTAL 0.9 MG/DL (0.3-1.2); BLOOD UREA NITROGEN 9 MG/DL (9-23); CALCIUM LEVEL 9.6 MG/DL (8.3-10.6); CARBON DIOXIDE LEVEL 27 MMOL/L (20-31); CHLORIDE LEVEL 103 MMOL/L (98-107); CREATININE FOR GFR 0.87 MG/DL (0.70-1.30); GLOMERULAR FILTRATION RATE > 60.0 (>49); GLUCOSE, FASTING 95 MG/DL (74-106); POTASSIUM SERUM 4.3 MMOL/L (3.5-5.1); SODIUM LEVEL 138 MMOL/L (136-145); TOTAL PROTEIN 7.3 G/DL (5.7-8.2)
== END ==
LOC: M PLALAB 09:17
PROVIDERS: ATTEND Internal Medicine Rheumatology
DX: M19.90 Unspecified osteoarthritis, unspecified site (principal)

== ENCOUNTER → 2024-04-10 | Outpatient (CLI) | payer OTHER ==
[~2024-04-10] MED LIST changes: -ADV250INH INH; +ADVA1AER9 INH
[2024-04-10 09:59] LABS: HEMATOCRIT 42.8 % (42.0-52.0); HEMOGLOBIN 14.3 g/dl (13.5-17.5); MEAN CORPUSCULAR HEMOGLOBIN 30.8 pg (27.0-33.0); MEAN CORPUSCULAR HGB CONC 33.4 g/dl (32.0-36.5); MEAN CORPUSCULAR VOLUME 92.2 fl (80.0-96.0); PLATELET COUNT, AUTOMATED 189 10^3/uL (150-450); RED BLOOD COUNT 4.64 10^6/uL (4.30-6.10); WHITE BLOOD COUNT 6.6 10^3/uL (4.0-10.0)
[2024-04-10 10:18] LABS: BLOOD UREA NITROGEN 9 MG/DL (9-23); CALCIUM LEVEL 9.5 MG/DL (8.3-10.6); CARBON DIOXIDE LEVEL 29 MMOL/L (20-31); CHLORIDE LEVEL 104 MMOL/L (98-107); CHOLESTEROL LEVEL 175 MG/DL (<200); CREATININE FOR GFR 0.85 MG/DL (0.70-1.30); GLOMERULAR FILTRATION RATE > 60.0 (>49); GLUCOSE, FASTING 96 MG/DL (74-106); HDL CHOLESTEROL 96.9 MG/DL (>40); LDL CHOLESTEROL 48.3 MG/DL (<100); NON-HDL-C 78.1 MG/DL; POTASSIUM SERUM 4.8 MMOL/L (3.5-5.1); SODIUM LEVEL 140 MMOL/L (136-145); TRIGLYCERIDES LEVEL 149 MG/DL (<150)
== END ==
LOC: M PLALAB 08:55
PROVIDERS: ATTEND Internal Medicine Cardiovascular Disease
DX: R00.2 Palpitations (principal); E78.00 Pure hypercholesterolemia, unspecified

== ENCOUNTER → 2024-10-15 | Outpatient (CLI) | payer MEDICAID, MEDICARE ==
[2024-10-15 12:22] LABS: APPEARANCE, URINE CLEAR (CLEAR); BACTERIA, URINE AUTO NEGATIVE (NEGATIVE); BILIRUBIN, URINE AUTO NEGATIVE (NEGATIVE); BLOOD, URINE BLOOD NEGATIVE (NEGATIVE); COLOR, URINE YELLOW (YELLOW); GLUCOSE, URINE (UA) AUTO NEGATIVE (NEGATIVE); KETONE, URINE AUTO NEGATIVE (NEGATIVE); LEUKOCYTE ESTERASE, URINE AUTO NEGATIVE (NEGATIVE); MUCUS, URINE SMALL (NEGATIVE); NITRITE, URINE AUTO NEGATIVE (NEGATIVE); PROTEIN, URINE AUTO NEGATIVE (NEGATIVE); RBC, URINE AUTO 0 /HPF (0-3); SQUAMOUS EPITHELIAL CELL UR AU 0 /HPF (0-6); UROBILINOGEN, URINE AUTO 0.2 mg/dL (0.0-2.0); WBC, URINE AUTO 0 /HPF (0-3)
[2024-10-15 12:49] LABS: ALBUMIN 3.5 G/DL (3.2-5.2); ALKALINE PHOSPHATASE 53 U/L (40-129); ALT/SGPT 46 U/L (7.0-40); AST/SGOT 65 U/L (<34); BILIRUBIN,TOTAL 0.9 MG/DL (0.3-1.2); BLOOD UREA NITROGEN 10 MG/DL (9-23); CALCIUM LEVEL 8.8 MG/DL (8.3-10.6); CARBON DIOXIDE LEVEL 28 MMOL/L (20-31); CHLORIDE LEVEL 104 MMOL/L (98-107); CREATININE FOR GFR 0.78 MG/DL (0.70-1.30); GLOMERULAR FILTRATION RATE > 90.0 (>49); GLUCOSE, FASTING 103 MG/DL (74-106); POTASSIUM SERUM 4.6 MMOL/L (3.5-5.1); SODIUM LEVEL 140 MMOL/L (136-145)
== END ==
LOC: M PLALAB 08:17
DX: R74.01 Elevation of levels of liver transaminase levels (principal); R60.0 Localized edema

== ENCOUNTER 2024-11-20 17:38 | Emergency (ER) | payer MEDICARE ==
[~2024-11-20] VITALS: Ht 185.4 cm; Wt 114.1 kg
[2024-11-20 18:39] LABS: PLATELET COUNT, AUTOMATED 237 10^3/uL (150-450)
[2024-11-20] MEDS ORDERED: ISOVUE-370 76% 100 ML VIAL As Ordered ONE (18:39)
[2024-11-20 19:08] LABS: ALT/SGPT 57 U/L (7.0-40); AST/SGOT 56 U/L (<34); CK-MB VALUE MASS < 1.0 NG/ML (<3.6); MAGNESIUM LEVEL 2.4 MG/DL (1.8-2.4)
[2024-11-20 19:10] LABS: FREE T4 1.29 NG/DL (0.89-1.76)
[2024-11-20 19:27] LABS: CPK CREATINE PHOSPHOKINASE 59 U/L (46-171)
[2024-11-20 20:15] VITALS: BP 141/71; O2SAT 99
[2024-11-20 20:20] LABS: KETONE, URINE AUTO RFX NEGATIVE (NEGATIVE); LEUKOCYTE ESTERASE UR AUTO RFX NEGATIVE (NEGATIVE); NITRITE, URINE AUTO RFX NEGATIVE (NEGATIVE); RBC, URINE AUTO RFX 0 /HPF (0-3); SQUAM EPITHELIAL CELL UR AURFX 0 /HPF (0-6); WBC, URINE AUTO RFX 0 /HPF (0-3)
[2024-11-20 20:31] VITALS: TEMP 97.9
== END 2024-11-20 20:32 | disposition home or self-care (01) ==
LOC: M ED 17:38
DX: I10 Essential (primary) hypertension (principal); J45.909 Unspecified asthma, uncomplicated; E78.5 Hyperlipidemia, unspecified; Z79.1 Long term (current) use of non-steroidal anti-inflammatories (NSAID); Z79.2 Long term (current) use of antibiotics; Z79.52 Long term (current) use of systemic steroids; Z79.899 Other long term (current) drug therapy
CPT/HCPCS: 36415; 70450; 70496; 70498; 80047; 80076; 81001; 82550; 82553; 83735; 84439; 84443; 84484; 85027; 93005; 99284; Q9967

== ENCOUNTER 2025-03-21 17:25 | Emergency (ER) | payer MEDICARE ==
[~2025-03-21] VITALS: Ht 185.4 cm; Wt 113.6 kg
[2025-03-21] MEDS ORDERED: LOSA50TA28 (17:32)
[2025-03-21] MEDS ORDERED: ASPIRIN 81 MG CHEWABLE TABLET PO ONE (17:50)
[2025-03-21 18:08] VITALS: BP 140/82
[2025-03-21] MEDS: METOPROLOL TART 25 MG TABLET PO ONE (18:08)
[2025-03-21] MEDS: ASPIRIN 81 MG CHEWABLE TABLET PO ONE (18:23)
[2025-03-21 18:29] LABS: BASO # 0.1 10^3/uL (0.0-0.2); BASO % 0.9 % (0.0-1.0); EOS # 0.1 10^3/uL (0.0-0.5); EOS % 1.9 % (0.0-3.0); LYMPH # 1.9 10^3/uL (1.5-5.0); LYMPH % 35.8 % (24.0-44.0); MONO # 0.4 10^3/uL (0.0-0.8); MONO % 8.1 % (2.0-8.0); NEUTROPHILS # 2.8 10^3/uL (1.5-8.5); NEUTROPHILS % 53.1 % (36.0-66.0); PLATELET COUNT, AUTOMATED 219 10^3/uL (150-450)
[2025-03-21 18:55] LABS: INR 0.93
[2025-03-21 19:02] LABS: ALT/SGPT 53 U/L (7.0-40); AST/SGOT 63 U/L (<34); CALCIUM LEVEL 9.2 MG/DL (8.3-10.6); CARBON DIOXIDE LEVEL 25 MMOL/L (20-31); CHLORIDE LEVEL 100 MMOL/L (98-107); CK-MB VALUE MASS < 1.0 NG/ML (<3.6); CPK CREATINE PHOSPHOKINASE 51 U/L (46-171); CREATININE FOR GFR 0.75 MG/DL (0.70-1.30); GLOMERULAR FILTRATION RATE > 90.0 (>49); POTASSIUM SERUM 3.8 MMOL/L (3.5-5.1); SODIUM LEVEL 137 MMOL/L (136-145)
[2025-03-21 19:05] LABS: FREE T4 1.28 NG/DL (0.89-1.76)
[2025-03-21] MEDS ORDERED: ISOVUE-370 76% 100 ML VIAL As Ordered ONE (19:37)
[2025-03-21 20:05] LABS: CK-MB VALUE MASS < 1.0 NG/ML (<3.6)
[2025-03-21 20:06] LABS: CPK CREATINE PHOSPHOKINASE 45 U/L (46-171)
[2025-03-21 21:56] VITALS: BP 137/74; TEMP 97.7; O2SAT 95
== END 2025-03-21 22:02 | disposition home or self-care (01) ==
LOC: M ED 17:25
DX: R07.9 Chest pain, unspecified (principal); I10 Essential (primary) hypertension; J45.909 Unspecified asthma, uncomplicated; F41.9 Anxiety disorder, unspecified; Z87.891 Personal history of nicotine dependence; Z79.1 Long term (current) use of non-steroidal anti-inflammatories (NSAID); Z79.2 Long term (current) use of antibiotics; Z79.52 Long term (current) use of systemic steroids; Z79.899 Other long term (current) drug therapy
CPT/HCPCS: 36415; 71046; 71275; 80048; 80076; 82550; 82553; 84439; 84443; 84484; 85025; 85610; 85730; 93005; 93041; 94760; 99285; Q9967